=== PATIENT | male | born 1980 | race Caucasian/White ===

== ENCOUNTER 2022-01-30 03:14 | Inpatient (IN) | payer MEDICARE, OTHER ==
[~2022-01-30] VITALS: Ht 172.7 cm; Wt 56.0 kg
[2022-01-30 03:00] VITALS: BP 139/79
[2022-01-30] MEDS ORDERED: LACT1CAP19 PO (05:20)
[2022-01-30] MEDS ORDERED: TRAZ-118 PO (05:20)
[2022-01-30] MEDS ORDERED: MULT-121 PO (05:20)
[2022-01-30] MEDS ORDERED: LEVO75TA5 PO (05:20)
[2022-01-30] MEDS ORDERED: FERR325T14 PO (05:20)
[2022-01-30] MEDS ORDERED: PROC10TA57 PO (05:20)
[2022-01-30] MEDS ORDERED: SODI10PO PO (05:20)
[2022-01-30] MEDS ORDERED: INSU100V6 SQ (05:20)
[2022-01-30] MEDS ORDERED: MUPI15CR8 TP (05:20)
[2022-01-30] MEDS ORDERED: AMIN30LI2 PO (05:20)
[2022-01-30] MEDS ORDERED: GABA-585 PO (05:20)
[2022-01-30] MEDS ORDERED: NICO1PAT25 TP (05:20)
[2022-01-30] MEDS ORDERED: TAMS0.4C97 PO (05:20)
[2022-01-30] MEDS ORDERED: CHOL4POW6 PO (05:20)
[2022-01-30] MEDS ORDERED: THIA100T57 PO (05:20)
[2022-01-30] MEDS ORDERED: LOPE2CAP3 PO (05:20)
[2022-01-30] MEDS ORDERED: CALC500T31 PO (05:20)
[2022-01-30] MEDS ORDERED: ASCO500T3 PO (05:20)
--- NOTE | 2022-01-30 05:24 | NUR ---
Patient transfered here from [facility]. Patient is currently drowsy, denies having any pain at this time. Patient is not able to answer questions coherently. Home medication list captured from medical records recieved from [facility]. Doctor independent marketing consultant has been paged for admit orders.
[2022-01-30] MEDS ORDERED: PROCHLORPERAZINE 5 MG TABLET. PO PRN (06:30)
[2022-01-30] MEDS: AA 4.25 %/CALCIUM/LYTES/D5W 1,000 ML IV SCH ×2 (06:30→16:53)
[2022-01-30] MEDS: LEVOTHYROXINE 75 MCG TABLET PO SCH (06:30)
[2022-01-30] MEDS: TAMSULOSIN 0.4 MG CAP.ER.24H. PO SCH (06:43)
[2022-01-30] MEDS: SODIUM ZIRCONIUM CYCLOSILICATE 10 GM PO SCH ×2 (06:43→20:52)
[2022-01-30] MEDS: LACTOBACILLUS RHAMNOSUS GG 1 CAPSULE. PO SCH ×2 (06:43→20:44)
[2022-01-30] MEDS: FERROUS SULFATE 325 MG TABLET. PO SCH (06:43)
[2022-01-30] MEDS: ASCORBIC ACID 500 MG TABLET PO SCH (06:44)
[2022-01-30] MEDS: MULTIVITAMIN with MINERAL TABLET. PO SCH (06:44)
[2022-01-30] MEDS: GABAPENTIN 100 MG CAPSULE. PO SCH ×3 (06:44→20:44)
[2022-01-30] MEDS: THIAMINE 100 MG TABLET. PO SCH (06:44)
[2022-01-30] MEDS: CALCIUM CARBONATE 500 MG TABLET PO SCH ×2 (06:44→20:44)
[2022-01-30] MEDS: CHOLESTYRAMINE/ASPARTAME 4 GM PACKET PO SCH ×2 (06:44→20:44)
[2022-01-30] MEDS: DEXTROSE 50% 25 GM / 50ML DISP.SYRIN. IV PRN (06:56)
[2022-01-30 07:00] VITALS: BP 146/101
[2022-01-30] MEDS: INSULIN LISPRO 300 UNITS/3 ML VIAL. SQ SCH ×4 (07:09→17:27)
[2022-01-30] MEDS: MUPIROCIN 2 % OINTMENT 22GM TUBE. TP SCH (07:22)
--- NOTE | 2022-01-30 07:24 | NUR ---
Patient had low blood glucose this morning. 1/2 amp of Dextrose administered. Blood sugar rechecked and it is 124. Doctor notified via message center
[2022-01-30] MEDS: NICOTINE 14MG PATCH. TD SCH (08:44)
[2022-01-30] MEDS ORDERED: NON FORMULARY ITEM (Amino Acids/Protein Hydrolys (Pro-Stat Liquid) 30 ML) PO SCH (09:00)
[2022-01-30] MEDS ORDERED: LOPERAMIDE 2 MG CAPSULE PO PRN (09:00)
[2022-01-30 09:19] LABS: BASO # 0.1 x10^3/uL (0.0-0.2); BASO % 2 % (0-3); EOS # 0.4 x10^3/uL (0.0-0.7); EOS % 7 % (0-3); HEMATOCRIT 22.7 % (39.0-53.0); HEMOGLOBIN 7.4 g/dL (13.0-17.5); LYMPH # 1.5 x10^3/uL (1.0-4.8); LYMPH % 25 % (24-48); MEAN CORPUSCULAR HEMOGLOBIN 27 pg (25-35); MEAN CORPUSCULAR HGB CONC 33 g/dL (31-37); MEAN CORPUSCULAR VOLUME 82 fL (79-100); MONO # 0.6 x10^3/uL (0.0-1.1); MONO % 10 % (0-9); NEUT # 3.4 x10^3/uL (1.8-7.7); NEUT % 56 % (31-73); PLATELET COUNT 621 x10^3/uL (140-400); RED BLOOD COUNT 2.77 x10^6/uL (4.30-5.70); RED CELL DISTRIBUTION WIDTH 15.6 % (11.5-14.5); WHITE BLOOD COUNT 6.1 x10^3/uL (4.0-11.0)
[2022-01-30 09:30] LABS: CALCIUM 8.3 mg/dL (8.5-10.1); CREATININE 0.9 mg/dL (0.7-1.3); GFR 93.5
[2022-01-30 09:33] LABS: POTASSIUM 5.2 mmol/L (3.5-5.1)
[2022-01-30 11:00] VITALS: BP 125/77
--- NOTE | 2022-01-30 11:19 | NUR ---
Bit Grinder did not administer insulin to patient at lunch, blood sugar was 267 but patient not eating and blood sugar was critically low this morning.
--- NOTE | 2022-01-30 11:40 | NUR ---
Patients temperature this morning was low at 92.1, blankets applied and 2 heat pads, Dr. Carty and Dr. Beavers notified. After several checks temp is now 97.4 and stable.
[2022-01-30] MEDS ORDERED: ONDANSETRON PF 4 MG/2 ML VIAL. IVP PRN (11:45)
[2022-01-30] MEDS ORDERED: ELECTROLYTE (NON-ICU) PROTOCOL. MC PRN (11:45)
[2022-01-30] MEDS ORDERED: ACETAMINOPHEN 325 MG TABLET. PO PRN (11:45)
[2022-01-30] MEDS ORDERED: oxyCODONE/APAP 5/325 1 TAB TABLET PO PRN (11:45)
[2022-01-30] MEDS: SENNOSIDES/DOCUSATE 8.6/50MG TABLET. PO SCH ×2 (11:53→20:44)
[2022-01-30] MEDS: oxyCODONE/APAP 5/325 1 TAB TABLET PO PRN ×2 (11:54→16:09)
[2022-01-30] MEDS: HEPARIN for SUB-Q USE 5,000 UNIT/ML VIAL. SQ SCH ×2 (11:58→21:36)
[2022-01-30] MEDS ORDERED: INSULIN REGULAR 100 UNIT/ML 3ML VIAL. SQ SCH (12:00)
[2022-01-30] MEDS ORDERED: SODIUM POLYSTYRENE SULFON/SORB 15 GM/60 ML ORAL.SUSP. PO ONE (13:45)
--- NOTE | 2022-01-30 13:45 | PDOC1 ---
History and Physical Date of Service: DOS: DATE: 01/30/22 TIME: 13:45 Chief Complaint: Chief Complain: abd pain, hyperglycemia History of Present Illness: HPI: Patient is a 41-year-old male presenting to the emergency department for evaluation of abdominal pain and hyperglycemia. Patient says that he has a history of pancreatitis recurrently and was admitted last wek for the same. He says he has dealt with pancreatitis for the past 15 years and asked him what the etiology was if it was his gallbladder or alcohol abuse and he said neither is he has had his gallbladder taken out and he does not drink alcohol. He denies fevers chills nausea vomiting diarrhea constipation. He says that he uses injections for his diabetes and has been compliant but his blood sugars have been persistently above 600. He appears nontoxic with normal vital signs. Of note this is patient's fifth ER visit since failure the eighth and it appears the patient was admitted on his last ER visit by Dr. Rod for pancreatitis and failure to thrive. Past Medical/Surgical History: PMH/PSH: Past Medical History: Depression, Diabetes Additional Past Medical Histor: ANOXIC BRAIN DAMAGE, ENCEPHALOPATHY, Past Surgical History: Cholecystectomy Additional Past Surgical Histo: LEFT LOWER LEG AMPUTATION Alcohol Use: None Drug Use: Marijuana Allergies: Allergies: Coded Allergies: No Known Drug Allergies (Unverified , 01/30/22) Patient states that he does not have any allergies Family History: Family History: DM Current Medications: Current Medications Current Medications Amino Acids/ Electrolytes/ Dextrose 1,000 ml @ 75 mls/hr [id number] IV Last administered on 01/30/22at 06:30; Start 01/30/22 at 06:00 Ascorbic Acid (Vitamin C) 500 mg DAILY PO ; Start 01/30/22 at 09:00 Calcium Carbonate/ Glycine (Oscal) 500 mg BID PO ; Start 01/30/22 at 09:00 Ferrous Sulfate (Feosol) 325 mg DAILY PO ; Start 01/30/22 at 09:00 Gabapentin (Neurontin) 100 mg TID PO ; Start 01/30/22 at 09:00 Insulin Human Regular (HumuLIN R VIAL) 100 unit Q6HRS SQ ; Start 01/30/22 at 12 :00; Status UNV Lactobacillus Rhamnosus (Culturelle) 1 cap BID PO ; Start 01/30/22 at 09:00 Levothyroxine Sodium (Synthroid) 75 mcg DAILY06 PO ; Start 01/30/22 at 06:30 Loperamide HCl (Imodium) 2 mg PRN TID PRN PO DIARRHEA; Start 01/30/22 at 09:00 Nicotine (Nicoderm Cq 14mg) 1 patch DAILY TD ; Start 01/30/22 at 09:00 Tamsulosin HCl (Flomax) 0.4 mg DAILY PO ; Start 01/30/22 at 09:00 Trazodone HCl (Desyrel) 50 mg QHS PO ; Start 01/30/22 at 21:00 Non-Formulary Medication (Amino Acids/ Protein Hydrolys (Pro-Stat Liquid)) 30 ml BID PO ; Start 01/30/22 at 09:00; Status UNV Cholestyramine Resin (Questran Light) 4 gm BID PO ; Start 01/30/22 at 09:00 Multivitamins (Thera M Plus) 1 tab DAILY PO ; Start 01/30/22 at 09:00 Mupirocin (Bactroban) 1 jay DAILY TP ; Start 01/30/22 at 09:00 Prochlorperazine Maleate (Compazine) 10 mg PRN Q12HRS PRN PO NAUSEA/VOMITING; Start 01/30/22 at 06:30 Non-Formulary Medication (Sodium Zirconium Cyclosilicate (Lokelma)) 10 gm BID PO ; Start 01/30/22 at 09:00; Status UNV Thiamine Mononitrate (Vitamin B-1) 100 mg DAILY PO ; Start 01/30/22 at 09:00 Dextrose (Dextrose 50%-Water Syringe) 12.5 gm PRN Q15MIN PRN IV SEE COMMENTS Last administered on 01/30/22at 06:56; Start 01/30/22 at 06:45 Insulin Human Lispro (HumaLOG) 0-5 UNITS TIDWMEALS SQ Last administered on 01/30/22at 12:54; Start 01/30/22 at 08:00 Ondansetron HCl (Zofran) 4 mg PRN Q6HRS PRN IVP NAUSEA/VOMITING; Start 01/30/22 at 11:45 Calcium Carbonate/ Glycine (Tums) 500 mg PRN Q3HRS PRN PO UPSET STOMACH; Start 01/30/22 at 11:45 Info (Non-Icu Electrolyte Protocol) 1 ea PRN DAILY PRN MC SEE COMMENTS; Start 01/30/22 at 11:45 Oxycodone/ Acetaminophen (Percocet 5/325) 1 tab PRN Q4HRS PRN PO MILD PAIN, 1ST CHOICE; Start 01/30/22 at 11:45 Oxycodone/ Acetaminophen (Percocet 5/325) 2 tab PRN Q4HRS PRN PO MODERATE PAIN, SEVERE PAIN Last administered on 01/30/22at 11:54; Start 01/30/22 at 11:45 Acetaminophen (Tylenol) 650 mg PRN Q6HRS PRN PO Headaches, Temp > 101.5F; Start 01/30/22 at 11:45 Senna/Docusate Sodium (Senna Plus) 1 tab BID PO Last administered on 01/30/22at 11:53; Start 01/30/22 at 12:00 Heparin Sodium (Porcine) (Heparin Sodium) 5,000 unit Q8HRS SQ Last administered on 01/30/22at 11:58; Start 01/30/22 at 12:00 Active Scripts Active Reported Ascorbic Acid 500 Mg Tablet 500 Mg PO DAILY Vitamin B-1 (Thiamine Hcl) 100 Mg Tablet 100 Mg PO DAILY Flomax (Tamsulosin Hcl) 0.4 Mg Cap.er.24h 0.4 Mg PO DAILY Lokelma (Sodium Zirconium Cyclosilicate) 10 Gm Powd.pack 10 Gm PO BID Pro-Stat Liquid (Amino Acids/Protein Hydrolys) 30 Ml Liquid.pkt 30 Ml PO BID NICODERM CQ 14mg (Nicotine) 1 Each Patch.td24 1 Patch TP DAILY Mupirocin Cream (Mupirocin) 15 Gm Cream..g. 1 Jay TP DAILY 7 Days Multiple Vitamins (Multivitamin) 1 Each Tablet 1 Tab PO DAILY 30 Days Anti-Diarrheal (Loperamide Hcl) 2 Mg Capsule 2 Mg PO TID Levothyroxine Sodium 75 Mcg Tablet 1 Tab PO DAILY Ferrous Sulfate 325 Mg Tablet 325 Mg PO DAILY Cholestyramine Packet (Cholestyramine (With Sugar)) 4 Gm Powd.pack 4 Gm PO BID Trazodone Hcl 50 Mg Tablet 1 Tab PO QHS Compazine (Prochlorperazine Maleate) 10 Mg Tablet 1 Tab PO Q12HR 30 Days Culturelle (Lactobacillus Rhamnosus Gg) 1 Each Cap.sprink 1 Each PO BID Humalog (Insulin Lispro) 100 Unit/1 Ml Vial 100 Unit SQ Q6HRS Gabapentin (Gabapentin) 100 Mg Capsule 100 Mg PO TID Calcium Carbonate 500 Mg Tablet 500 Mg PO BID ROS: Review of Systems Review of System Unless noted in HPI 14 point review of systems was negative Physical Exam: Vital Signs: Vital Signs Date Time Temp Pulse Resp B/P (MAP) Pulse Ox O2 Delivery O2 Flow Rate FiO2 01/30/22 11:00 97.3 68 18 125/77 (93) Room Air 97.3 01/30/22 07:00 100 Physcial Exam: GEN: No apparent distress. Alert and oriented HEENT: Normal cephalic, atraumatic, external auditory canals are patent EYES: Extraocular muscles are intact, pupil are equally round and reactive to light and accommodation MUSCULOSKELETAL: Well developed , well nourished, good range of motion ENDOCRINE: No thyromegaly was palpated LYMPHATICS: No cervical chain or axillary nodes were noted HEMATOPOIETIC: No bruising NECK: Supple, no JVD, no thyromegaly was noted LUNGS: Clear to auscultation in all lung wallace without rhonchi or wheezing HEART: RRR, S!, S2 present. Peripheral pulses intact, no obvious murmurs noted ABDOMEN: Soft, nontender. Positive bowel sounds, no organomegaly, normal bowel sounds EXTREMITIES: Without clubbing, cyanosis, or edema. Pedal pulses intact. Nega tive Homans sign NEUROLOGIC: Normal speech and tone. A&O x 3, moves all extremities, no obvious focal deficits PSYCHIATRIC: Normal affect, normal mood. Stable SKIN: No ulcerations or rashes, good skin turgor, no jaundice VASCULAR: Good capillary refill, neurovascular bundle appears to be intact Labs: Labs: Laboratory Tests Test 01/30/22 06:26 01/30/22 06:28 01/30/22 07:08 01/30/22 07:57 Glucose (Fingerstick) 43 mg/dL (70-99) 51 mg/dL (70-99) 124 mg/dL (70-99) 112 mg/dL (70-99) Test 01/30/22 08:42 01/30/22 08:59 01/30/22 11:17 Glucose (Fingerstick) 182 mg/dL (70-99) 267 mg/dL (70-99) White Blood Count 6.1 x10^3/uL (4.0-11.0) Red Blood Count 2.77 x10^6/uL (4.30-5.70) Hemoglobin 7.4 g/dL (13.0-17.5) Hematocrit 22.7 % (39.0-53.0) Mean Corpuscular Volume 82 fL (79-100) Mean Corpuscular Hemoglobin 27 pg (25-35) Mean Corpuscular Hemoglobin Concent 33 g/dL (31-37) Red Cell Distribution Width 15.6 % (11.5-14.5) Platelet Count 621 x10^3/uL (140-400) Neutrophils (%) (Auto) 56 % (31-73) Lymphocytes (%) (Auto) 25 % (24-48) Monocytes (%) (Auto) 10 % (0-9) Eosinophils (%) (Auto) 7 % (0-3) Basophils (%) (Auto) 2 % (0-3) Neutrophils # (Auto) 3.4 x10^3/uL (1.8-7.7) Lymphocytes # (Auto) 1.5 x10^3/uL (1.0-4.8) Monocytes # (Auto) 0.6 x10^3/uL (0.0-1.1) Eosinophils # (Auto) 0.4 x10^3/uL (0.0-0.7) Basophils # (Auto) 0.1 x10^3/uL (0.0-0.2) Sodium Level 135 mmol/L (136-145) Potassium Level 5.2 mmol/L (3.5-5.1) Chloride Level 106 mmol/L (98-107) Carbon Dioxide Level 22 mmol/L (21-32) Anion Gap 7 (6-14) Blood Urea Nitrogen 24 mg/dL (8-26) Creatinine 0.9 mg/dL (0.7-1.3) Estimated GFR (Cockcroft-Gault) 93.5 Glucose Level 165 mg/dL (70-99) Calcium Level 8.3 mg/dL (8.5-10.1) Laboratory Tests Test 01/30/22 06:26 01/30/22 06:28 01/30/22 07:08 01/30/22 07:57 Glucose (Fingerstick) 43 mg/dL (70-99) 51 mg/dL (70-99) 124 mg/dL (70-99) 112 mg/dL (70-99) Test 01/30/22 08:42 01/30/22 08:59 01/30/22 11:17 Glucose (Fingerstick) 182 mg/dL (70-99) 267 mg/dL (70-99) White Blood Count 6.1 x10^3/uL (4.0-11.0) Red Blood Count 2.77 x10^6/uL (4.30-5.70) Hemoglobin 7.4 g/dL (13.0-17.5) Hematocrit 22.7 % (39.0-53.0) Mean Corpuscular Volume 82 fL (79-100) Mean Corpuscular Hemoglobin 27 pg (25-35) Mean Corpuscular Hemoglobin Concent 33 g/dL (31-37) Red Cell Distribution Width 15.6 % (11.5-14.5) Platelet Count 621 x10^3/uL (140-400) Neutrophils (%) (Auto) 56 % (31-73) Lymphocytes (%) (Auto) 25 % (24-48) Monocytes (%) (Auto) 10 % (0-9) Eosinophils (%) (Auto) 7 % (0-3) Basophils (%) (Auto) 2 % (0-3) Neutrophils # (Auto) 3.4 x10^3/uL (1.8-7.7) Lymphocytes # (Auto) 1.5 x10^3/uL (1.0-4.8) Monocytes # (Auto) 0.6 x10^3/uL (0.0-1.1) Eosinophils # (Auto) 0.4 x10^3/uL (0.0-0.7) Basophils # (Auto) 0.1 x10^3/uL (0.0-0.2) Sodium Level 135 mmol/L (136-145) Potassium Level 5.2 mmol/L (3.5-5.1) Chloride Level 106 mmol/L (98-107) Carbon Dioxide Level 22 mmol/L (21-32) Anion Gap 7 (6-14) Blood Urea Nitrogen 24 mg/dL (8-26) Creatinine 0.9 mg/dL (0.7-1.3) Estimated GFR (Cockcroft-Gault) 93.5 Glucose Level 165 mg/dL (70-99) Calcium Level 8.3 mg/dL (8.5-10.1) Assessment/Plan Assessment/Plan Pancreatitis secondary to diabetes. Severe malnourishment. -Admit to hospitalist -We will start insulin. Patient diabetes very brittle thus frequent sugar checks -home insulin regimen ordered; add sliding scale asneeded -DVT ppx -home meds as indicated otherwise -pain control -no need for antimicrobials at this point -clear liquid diet as patient asking for diet, suspect pancreatitis resolving -recommended he establish with an supervisor graphite moving forward 22 min acp Justifications for Admission Other Justification VIC NEWMAN MD January 30, 2022 13:45
[2022-01-30 15:00] VITALS: BP 117/74
--- NOTE | 2022-01-30 17:08 | NUR ---
Patients blood sugar is 398, educated patient about overeating and eating the wrong foods, notified Dr. Beavers, new order for sliding scale plus 5 units of humalog.
[2022-01-30] MEDS ORDERED: INSULIN LISPRO 300 UNITS/3 ML VIAL. SQ SCH (17:15)
[2022-01-30] MEDS ORDERED: INSULIN LISPRO 300 UNITS/3 ML VIAL. SQ ONE (17:30)
[2022-01-30 19:00] VITALS: BP 126/61
[2022-01-30] MEDS: traZODone 50 MG TABLET. PO SCH (20:44)
[2022-01-30] MEDS ORDERED: INSULIN GLARGINE SYRINGE. SQ SCH (21:00)
[2022-01-30 23:00] VITALS: BP 105/62
[2022-01-31 03:00] VITALS: BP 105/60
[2022-01-31] MEDS: oxyCODONE/APAP 5/325 1 TAB TABLET PO PRN ×4 (03:28→20:45)
[2022-01-31] MEDS: DEXTROSE 50% 25 GM / 50ML DISP.SYRIN. IV PRN ×2 (06:01→14:35)
[2022-01-31] MEDS: LEVOTHYROXINE 75 MCG TABLET PO SCH (06:02)
[2022-01-31] MEDS: HEPARIN for SUB-Q USE 5,000 UNIT/ML VIAL. SQ SCH ×3 (06:10→22:39)
--- NOTE | 2022-01-31 06:20 | NUR ---
Patient was found diaphoretic, sluggishly responding to name. Blood glucose checked and was found to be 21. Half an amp of dextrose IV administered. Blood glucose rechecked 15 minutes later and it was 101. Patient is now Alert, oriented x4. transportation maintenance supervisor paged. Message left with answering service
[2022-01-31] MEDS: INSULIN LISPRO 300 UNITS/3 ML VIAL. SQ SCH ×6 (07:30→17:00)
[2022-01-31] MEDS: CALCIUM CARBONATE 500 MG TABLET PO SCH ×2 (08:11→20:44)
[2022-01-31] MEDS: SENNOSIDES/DOCUSATE 8.6/50MG TABLET. PO SCH ×2 (08:11→20:45)
[2022-01-31] MEDS: THIAMINE 100 MG TABLET. PO SCH (08:11)
[2022-01-31] MEDS: LACTOBACILLUS RHAMNOSUS GG 1 CAPSULE. PO SCH ×2 (08:11→20:44)
[2022-01-31] MEDS: FERROUS SULFATE 325 MG TABLET. PO SCH (08:11)
[2022-01-31] MEDS: GABAPENTIN 100 MG CAPSULE. PO SCH ×3 (08:11→20:44)
[2022-01-31] MEDS: MULTIVITAMIN with MINERAL TABLET. PO SCH (08:11)
[2022-01-31] MEDS: ASCORBIC ACID 500 MG TABLET PO SCH (08:11)
[2022-01-31] MEDS: TAMSULOSIN 0.4 MG CAP.ER.24H. PO SCH (08:12)
[2022-01-31] MEDS: NICOTINE 14MG PATCH. TD SCH (08:13)
[2022-01-31] MEDS: CHOLESTYRAMINE/ASPARTAME 4 GM PACKET PO SCH ×2 (08:14→20:44)
[2022-01-31] MEDS: MUPIROCIN 2 % OINTMENT 22GM TUBE. TP SCH (08:22)
[2022-01-31] MEDS: SODIUM ZIRCONIUM CYCLOSILICATE 10 GM PO SCH ×2 (09:00→21:00)
--- NOTE | 2022-01-31 09:59 | PDOC ---
[employer] PROGRESS NOTE Date of Service DOS: DATE: 01/31/22 TIME: 09:46 Chief Complaint Chief Complaint Pancreatitis secondary to diabetes DM1 Multiple superficial wounds to bilateral lower extremities s/p left BKA Severe malnourishment History of Present Illness History of Present Illness 01/31: Patient seen and evaluated bedside. Blood sugar was as low as 12 this morning. 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 We will decrease to 10 units at night. He has no abdominal pain today. Will advance diet as tolerated. Vitals/I&O Vitals/I&O: Vital Signs Date Time Temp Pulse Resp B/P (MAP) Pulse Ox O2 Delivery O2 Flow Rate FiO2 01/31/22 08:42 Room Air 01/31/22 04:17 16 01/31/22 03:00 98.0 73 105/60 (75) 99 98.0 I & O 01/30/22 01/30/22 01/31/22 15:00 23:00 07:00 Intake Total 250 ml 2374 ml Output Total 1200 ml Balance -950 ml 2374 ml Physical Exam General: Alert, Oriented X3, Cooperative Heart: Regular rate Lungs: Clear Abdomen: No tenderness Extremities: Other (Left BKA) Skin: Other (Superficial abrasions and ulcerations to bilateral lower extremities) Labs Labs: Laboratory Tests Test 01/30/22 11:17 01/30/22 16:57 01/30/22 20:24 01/31/22 05:49 Glucose (Fingerstick) 267 mg/dL (70-99) 398 mg/dL (70-99) 206 mg/dL (70-99) 12 mg/dL (70-99) Test 01/31/22 05:54 01/31/22 06:08 01/31/22 06:30 01/31/22 07:37 Glucose (Fingerstick) 21 mg/dL (70-99) 101 mg/dL (70-99) 85 mg/dL (70-99) 90 mg/dL (70-99) Comment Review of Relevant I have reviewed the following items myron (where applicable) has been applied. Medications: Current Medications Medications (Trade) Dose Ordered Sig/Zenon Route PRN Reason Start Time Stop Time Status Last Admin Dose Admin Trazodone HCl (Desyrel) 50 mg QHS PO 01/30/22 21:00 01/30/22 20:44 Oxycodone/ Acetaminophen (Percocet 5/325) 2 tab PRN Q4HRS PRN PO MODERATE PAIN, SEVERE PAIN 01/30/22 11:45 01/31/22 08:12 Senna/Docusate Sodium (Senna Plus) 1 tab BID PO 01/30/22 12:00 01/31/22 08:11 Heparin Sodium (Porcine) (Heparin Sodium) 5,000 unit Q8HRS SQ 01/30/22 12:00 01/31/22 06:10 Insulin Glargine (Lantus Syringe) 14 unit QHS SQ 01/30/22 21:00 01/30/22 20:52 Sodium Polystyrene Sulfonate (Kayexalate) 15 gm 1X ONCE PO 01/30/22 13:45 01/30/22 13:51 DC 01/30/22 13:56 Insulin Human Lispro (HumaLOG) 5 units 1X ONCE SQ 01/30/22 17:30 01/30/22 17:31 DC 01/30/22 17:30 Justifications for Admission Other Justification AVA CLOON MD January 31, 2022 09:59
[2022-01-31 11:12] VITALS: BP 118/72
[2022-01-31 15:00] VITALS: BP 116/72
--- NOTE | 2022-01-31 17:10 | NUR ---
Wound Care Wound Type/Assessment: Consult to eval and treat multiple wounds present on admission. Pt has been treated for the same wounds multiple times when at [facility]. Wounds cleansed and measured (pictures present on chart). L knee wound is hypergranulated with a small tunnel in the center with 0.8cm depth and UM 12-12 of 1.8cm. L carpenter, R knee, R carpenter wounds are dry and slough covered with pink margins. Multiple areas of scar tissue to R foot. L dorsal 3rd and 5th knuckles have intact, fluctuant, clear fluid filled blisters. L stump is pink, moist, granulated without exposed structures or significant depth. No other wounds noted on head to toe assessment. Treatment Recommendations/Plan: Bilat. shins, R knee, L BKA stump: Cleanse and dry. Apply medihoney gel, xeroform gauze, ABD, kerlix. Change every other day. L knee: Pack central depth/undermining with 1/4" iodoform gauze, cover with xeroform, ABD, kerlix. Change every other day. R toes/L hand blisters: [place] blisters/scabs with skin prep daily. Leave CANTEEN ATTENDANT Education provided: Pt educated r/t treatment plan. diabetic wound healing, turning to prevent skin breakdown. Offloading surface/device: Pt is able to turn independently. Recommended Referrals/Tests: NA Discharge Recommendations for dressings: As above pending changes to treatment plan
[2022-01-31 19:00] VITALS: BP 135/77
--- NOTE | 2022-01-31 19:16 | NUR ---
blood sugar at lunch was 14. 50ml of dextrose was given. At 1455 blood sugar was 81 and pt was just starting to eat lunch. At 1500 blood sugar was 140. Patient did not want to take his scheduled 10units of Humalog at this time
[2022-01-31] MEDS: traZODone 50 MG TABLET. PO SCH (20:44)
[2022-01-31] MEDS: INSULIN GLARGINE SYRINGE. SQ SCH (20:54)
[2022-01-31 23:00] VITALS: BP 132/72
[2022-02-01] VITALS (11 sets, daily range): BP systolic 98–132; BP diastolic 54–82
[2022-02-01 01:08] LABS: HEMOGLOBIN A1C 13.7 % (4.8-5.6)
[2022-02-01] MEDS: oxyCODONE/APAP 5/325 1 TAB TABLET PO PRN ×4 (03:26→16:13)
--- NOTE | 2022-02-01 04:01 | NUR ---
Patient has been incontinent of 3 large stools that are soft and greyish colored w/ undigested food particles present. States he's been incontinent of stool for 2 years. Requests nursing staff to clean and change his diaper, while he looks on. States his father is his caregiver for him and his mother. Father recently diagnosed w/ cancer. Requests Percocet for his "leg pain" then states they make him nauseous. Requesting turkey sandwich and ice cream. Sugar free pudding and shaun crackers given.
[2022-02-01] MEDS: LEVOTHYROXINE 75 MCG TABLET PO SCH (06:24)
[2022-02-01] MEDS: HEPARIN for SUB-Q USE 5,000 UNIT/ML VIAL. SQ SCH ×3 (06:28→22:00)
[2022-02-01] MEDS: INSULIN LISPRO 300 UNITS/3 ML VIAL. SQ SCH ×6 (07:30→17:49)
[2022-02-01 08:02] LABS: BASO # 0.1 x10^3/uL (0.0-0.2); BASO % 1 % (0-3); EOS # 0.5 x10^3/uL (0.0-0.7); EOS % 7 % (0-3); HEMATOCRIT 20.2 % (39.0-53.0); LYMPH # 2.3 x10^3/uL (1.0-4.8); LYMPH % 29 % (24-48); MEAN CORPUSCULAR HEMOGLOBIN 27 pg (25-35); MEAN CORPUSCULAR HGB CONC 32 g/dL (31-37); MEAN CORPUSCULAR VOLUME 84 fL (79-100); MONO # 0.6 x10^3/uL (0.0-1.1); MONO % 7 % (0-9); NEUT # 4.4 x10^3/uL (1.8-7.7); NEUT % 56 % (31-73); PLATELET COUNT 559 x10^3/uL (140-400); WHITE BLOOD COUNT 7.9 x10^3/uL (4.0-11.0)
[2022-02-01 08:14] LABS: HEMOGLOBIN 6.5 g/dL (13.0-17.5)
[2022-02-01 08:22] LABS: ALBUMIN 1.9 g/dL (3.4-5.0); ALBUMIN/GLOBULIN RATIO 0.5 (1.0-1.7); CALCIUM 7.9 mg/dL (8.5-10.1); CREATININE 0.9 mg/dL (0.7-1.3); GFR 93.5; POTASSIUM 5.4 mmol/L (3.5-5.1); TOTAL BILIRUBIN 0.2 mg/dL (0.2-1.0); TOTAL PROTEIN 5.6 g/dL (6.4-8.2)
--- NOTE | 2022-02-01 08:32 | PDOC ---
[employer] PROGRESS NOTE Date of Service DOS: DATE: 02/01/22 TIME: 08:28 Chief Complaint Chief Complaint Pancreatitis secondary to diabetes DM1 Multiple superficial wounds to bilateral lower extremities s/p left BKA Severe malnourishment History of Present Illness History of Present Illness 02/01: Patient seen and evaluated. Hemoglobin is 6.5 today. Provide [address] consultation to GI. He denies abdominal pain. Reports history of chronic diarrhea over the past 2 years, uncertain if this overtly red or black. 01/31: Patient seen and evaluated bedside. Blood sugar was as low as 12 this morning. 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 We will decrease to 10 units at night. He has no abdominal pain today. Will advance diet as tolerated. Vitals/I&O Vitals/I&O: Vital Signs Date Time Temp Pulse Resp B/P (MAP) Pulse Ox O2 Delivery O2 Flow Rate FiO2 02/01/22 07:35 16 100 Room Air 02/01/22 03:00 84 119/67 (84) 01/31/22 23:00 98.9 98.9 I & O 01/31/22 01/31/22 02/01/22 15:00 23:00 07:00 Intake Total 750 ml 1500 ml 620 ml Output Total 1275 ml Balance 750 ml 225 ml 620 ml Physical Exam General: Alert, Oriented X3, Cooperative Heart: Regular rate Lungs: Clear Abdomen: No tenderness Extremities: Other (Left BKA) Skin: Other (Superficial abrasions and ulcerations to bilateral lower extremities) Labs Labs: Laboratory Tests Test 01/31/22 11:19 01/31/22 11:36 01/31/22 14:29 01/31/22 14:54 Glucose (Fingerstick) 285 mg/dL (70-99) 255 mg/dL (70-99) 14 mg/dL (70-99) 81 mg/dL (70-99) Test 01/31/22 17:07 01/31/22 20:13 02/01/22 01:59 02/01/22 07:05 Glucose (Fingerstick) 140 mg/dL (70-99) 330 mg/dL (70-99) 270 mg/dL (70-99) White Blood Count 7.9 x10^3/uL (4.0-11.0) Red Blood Count 2.40 x10^6/uL (4.30-5.70) Hemoglobin 6.5 g/dL (13.0-17.5) Hematocrit 20.2 % (39.0-53.0) Mean Corpuscular Volume 84 fL (79-100) Mean Corpuscular Hemoglobin 27 pg (25-35) Mean Corpuscular Hemoglobin Concent 32 g/dL (31-37) Red Cell Distribution Width 16.0 % (11.5-14.5) Platelet Count 559 x10^3/uL (140-400) Neutrophils (%) (Auto) 56 % (31-73) Lymphocytes (%) (Auto) 29 % (24-48) Monocytes (%) (Auto) 7 % (0-9) Eosinophils (%) (Auto) 7 % (0-3) Basophils (%) (Auto) 1 % (0-3) Neutrophils # (Auto) 4.4 x10^3/uL (1.8-7.7) Lymphocytes # (Auto) 2.3 x10^3/uL (1.0-4.8) Monocytes # (Auto) 0.6 x10^3/uL (0.0-1.1) Eosinophils # (Auto) 0.5 x10^3/uL (0.0-0.7) Basophils # (Auto) 0.1 x10^3/uL (0.0-0.2) Sodium Level 133 mmol/L (136-145) Potassium Level 5.4 mmol/L (3.5-5.1) Chloride Level 105 mmol/L (98-107) Carbon Dioxide Level 21 mmol/L (21-32) Anion Gap 7 (6-14) Blood Urea Nitrogen 17 mg/dL (8-26) Creatinine 0.9 mg/dL (0.7-1.3) Estimated GFR (Cockcroft-Gault) 93.5 BUN/Creatinine Ratio 19 (6-20) Glucose Level 94 mg/dL (70-99) Calcium Level 7.9 mg/dL (8.5-10.1) Total Bilirubin 0.2 mg/dL (0.2-1.0) Aspartate Amino Transf (AST/SGOT) 37 U/L (15-37) Alanine Aminotransferase (ALT/SGPT) 111 U/L (16-63) Alkaline Phosphatase 237 U/L (46-116) Total Protein 5.6 g/dL (6.4-8.2) Albumin 1.9 g/dL (3.4-5.0) Albumin/Globulin Ratio 0.5 (1.0-1.7) Comment Review of Relevant I have reviewed the following items myron (where applicable) has been applied. Medications: Current Medications Medications (Trade) Dose Ordered Sig/Zenon Route PRN Reason Start Time Stop Time Status Last Admin Dose Admin Insulin Glargine (Lantus Syringe) 10 unit QHS SQ 01/31/22 21:00 01/31/22 20:54 Justifications for Admission Other Justification AVA COLON MD February 01, 2022 08:32
[2022-02-01] MEDS: MUPIROCIN 2 % OINTMENT 22GM TUBE. TP SCH ×2 (09:00→21:16)
[2022-02-01] MEDS: SODIUM ZIRCONIUM CYCLOSILICATE 10 GM PO SCH (09:00)
[2022-02-01] MEDS: THIAMINE 100 MG TABLET. PO SCH (09:19)
[2022-02-01] MEDS: SENNOSIDES/DOCUSATE 8.6/50MG TABLET. PO SCH (09:19)
[2022-02-01] MEDS: MULTIVITAMIN with MINERAL TABLET. PO SCH (09:19)
[2022-02-01] MEDS: GABAPENTIN 100 MG CAPSULE. PO SCH ×3 (09:19→21:13)
[2022-02-01] MEDS: TAMSULOSIN 0.4 MG CAP.ER.24H. PO SCH (09:19)
[2022-02-01] MEDS: CALCIUM CARBONATE 500 MG TABLET PO SCH ×2 (09:19→21:13)
[2022-02-01] MEDS: FERROUS SULFATE 325 MG TABLET. PO SCH (09:19)
[2022-02-01] MEDS: ASCORBIC ACID 500 MG TABLET PO SCH (09:19)
[2022-02-01] MEDS: LACTOBACILLUS RHAMNOSUS GG 1 CAPSULE. PO SCH ×2 (09:19→21:12)
[2022-02-01] MEDS: NICOTINE 14MG PATCH. TD SCH (09:23)
[2022-02-01] MEDS: CHOLESTYRAMINE/ASPARTAME 4 GM PACKET PO SCH ×2 (09:23→21:15)
--- NOTE | 2022-02-01 10:03 | PDOC2 ---
GI CONSULT Date of Service: DATE: 02/01/22 TIME: 10:03 Reason For Consult: low Hgb unknown cause HPI: HPI: 41 y/o male who says he went to [facility] for high blood sugar. H/o uncontrolled DM (A1c 13.7) and left BKA w/ BLE wounds because he crawls around on floor at home. We're asked to see for anemia. No obvious bleeding per staff. He "eats a lot." At [facility]: HGb 7, MCV 84, RDW 15.2, BUN 31, Cr 1.2, bili 0.2, AST 51, ALT 206, Alk Phos 308, BNP 3869, lipase 829. CT: moderate stool in colon, mild diffuse soft tissue anasarca/volume overload, nonspecific decreased attenuation of the blood pool, tree-in-bud nodularity at LLL. (Liver and pancreas unremarkable.) He denies reflux/heartburn, n/v, abd pain, constipation, hematochezia, melena, change in appetite, or weight loss. "Diarrhea" (3-4 mushy stools daily) x 2 years. Thinks he's been anemic for a month or two. Reports EGD and colonoscopy 5-6 years ago @ [facility] w/ colon polyps. Says h/o abnormal swallowing improved w/ speech therapy @ [facility]. S/p cholecystectomy @ [facility] ~3 years ago - denies h/o gallstones, says performed for recurrent pancreatitis. Says he's had pancreas problems for many years - unknown cause though repeats "I'm not a drinker" - unclear what workup done in past. He thinks cholecystectomy helped this issue - denies pancreatitis "flare" for awhile. Denies liver and PUD history. Takes morphine at home for leg pain. Other notes suggest recent abdominal pain and h/o anoxic brain injury. On Questran, Imodium, Senna, and Zofran here. PMH: PMH: DM, depression, anoxic brain injury, hypothyroidism left BKA, cholecystectomy FH: Family History: No pertinent hx (denies GI cancers) Social History: Smoke: 1 pack per day ALCOHOL: occassional Drugs: Marijuana ROS: GEN: Denies fevers, chills, sweats HEENT: Denies blurred vision, sore throat CV: Denies chest pain RESP: Denies shortness of air, cough GI: Per HPI : Denies hematuria, dysuria ENDO: Denies weight changes NEURO: Denies confusion, dizziness MSK: Denies weakness, joint pain/swelling SKIN: Denies jaundice, pruritus Vitals: Vitals: Vital Signs Date Time Temp Pulse Resp B/P (MAP) Pulse Ox O2 Delivery O2 Flow Rate FiO2 02/01/22 09:17 16 100 Room Air 02/01/22 07:00 97.9 76 132/79 (96) 97.9 Labs: Labs: Laboratory Tests Test 01/31/22 11:19 01/31/22 11:36 01/31/22 14:29 01/31/22 14:54 Glucose (Fingerstick) 285 mg/dL (70-99) 255 mg/dL (70-99) 14 mg/dL (70-99) 81 mg/dL (70-99) Test 01/31/22 17:07 01/31/22 20:13 02/01/22 01:59 02/01/22 07:05 Glucose (Fingerstick) 140 mg/dL (70-99) 330 mg/dL (70-99) 270 mg/dL (70-99) White Blood Count 7.9 x10^3/uL (4.0-11.0) Red Blood Count 2.40 x10^6/uL (4.30-5.70) Hemoglobin 6.5 g/dL (13.0-17.5) Hematocrit 20.2 % (39.0-53.0) Mean Corpuscular Volume 84 fL (79-100) Mean Corpuscular Hemoglobin 27 pg (25-35) Mean Corpuscular Hemoglobin Concent 32 g/dL (31-37) Red Cell Distribution Width 16.0 % (11.5-14.5) Platelet Count 559 x10^3/uL (140-400) Neutrophils (%) (Auto) 56 % (31-73) Lymphocytes (%) (Auto) 29 % (24-48) Monocytes (%) (Auto) 7 % (0-9) Eosinophils (%) (Auto) 7 % (0-3) Basophils (%) (Auto) 1 % (0-3) Neutrophils # (Auto) 4.4 x10^3/uL (1.8-7.7) Lymphocytes # (Auto) 2.3 x10^3/uL (1.0-4.8) Monocytes # (Auto) 0.6 x10^3/uL (0.0-1.1) Eosinophils # (Auto) 0.5 x10^3/uL (0.0-0.7) Basophils # (Auto) 0.1 x10^3/uL (0.0-0.2) Sodium Level 133 mmol/L (136-145) Potassium Level 5.4 mmol/L (3.5-5.1) Chloride Level 105 mmol/L (98-107) Carbon Dioxide Level 21 mmol/L (21-32) Anion Gap 7 (6-14) Blood Urea Nitrogen 17 mg/dL (8-26) Creatinine 0.9 mg/dL (0.7-1.3) Estimated GFR (Cockcroft-Gault) 93.5 BUN/Creatinine Ratio 19 (6-20) Glucose Level 94 mg/dL (70-99) Calcium Level 7.9 mg/dL (8.5-10.1) Total Bilirubin 0.2 mg/dL (0.2-1.0) Aspartate Amino Transf (AST/SGOT) 37 U/L (15-37) Alanine Aminotransferase (ALT/SGPT) 111 U/L (16-63) Alkaline Phosphatase 237 U/L (46-116) Total Protein 5.6 g/dL (6.4-8.2) Albumin 1.9 g/dL (3.4-5.0) Albumin/Globulin Ratio 0.5 (1.0-1.7) Allergies: Coded Allergies: No Known Drug Allergies (Unverified , 01/30/22) Patient states that he does not have any allergies Medications: Current Medications Medications (Trade) Dose Ordered Sig/Zenon Route PRN Reason Start Time Stop Time Status Last Admin Dose Admin Insulin Glargine (Lantus Syringe) 10 unit QHS SQ 01/31/22 21:00 01/31/22 20:54 Imaging: Imaging: see HPI PE: GEN: NAD, thin HEENT: Atraumatic, PERRL LUNGS: CTAB HEART: RRR ABD: NABS, S/ND/NT EXTREMITY: No edema SKIN: tattoos NEURO/PSYCH: A & O 3, forgetful? A/P: A/P: Uncontrolled DM, BLE wounds Anemia, abnormal LFTs, elevated BNP, hypoalbuminemia CRC screen - reports colonoscopy 5-6 years ago w/ polyps @ [facility] H/o diarrhea H/o pancreatitis - details unclear, currently denies abd pain and n/v S/p cholecystectomy -- Not sure he's the best historian. Agree w/ transfusion. Check anemia parameters, Hepatitis panel, and stool studies for completeness. Will ask for records from [facility]. Consider additional liver imaging. Other per Dr. Cook. JOSE HOGAN February 01, 2022 10:03
--- NOTE | 2022-02-01 17:46 | NUR ---
Patient's FSBS 335--patient refusing sliding scale Humalog Insulin 5UNITS; patient did agree to take 1630 dose of scheduled Humalog Insulin 10UNITS.
--- NOTE | 2022-02-01 20:20 | NUR ---
Critical result + CDiff called to Dr. Fagan. Orders rec'd.
[2022-02-01] MEDS: INSULIN GLARGINE SYRINGE. SQ SCH (21:00)
[2022-02-01] MEDS: traZODone 50 MG TABLET. PO SCH (21:13)
[2022-02-01] MEDS: VANCOMYCIN 125 MG/2.5 ML ORAL SOLUTION. PO SCH (21:14)
[2022-02-02 03:37] VITALS: BP 116/65
[2022-02-02] MEDS: LEVOTHYROXINE 75 MCG TABLET PO SCH (05:40)
[2022-02-02] MEDS: DEXTROSE 50% 25 GM / 50ML DISP.SYRIN. IV PRN (05:47)
[2022-02-02] MEDS: HEPARIN for SUB-Q USE 5,000 UNIT/ML VIAL. SQ SCH ×3 (05:48→22:31)
--- NOTE | 2022-02-02 05:57 | NUR ---
FSBS 16. 1 amp D50 given IVP. Patient with eyes closed, no verbal response, sternal rub given, patient moving in bed. Diaphoretic. FSBS 130. Now awake. Rapid response called at the request of MARCK Loredo. No further interventions needed. Patient given sandwich tray and apple juice. Dressing to left stump found in bed. Linens changed.
[2022-02-02] MEDS: oxyCODONE/APAP 5/325 1 TAB TABLET PO PRN ×5 (06:14→21:42)
[2022-02-02 06:41] LABS: HEMATOCRIT 26.3 % (39.0-53.0); HEMOGLOBIN 8.5 g/dL (13.0-17.5); RED BLOOD COUNT 3.16 x10^6/uL (4.30-5.70); RED CELL DISTRIBUTION WIDTH 15.7 % (11.5-14.5); WHITE BLOOD COUNT 5.3 x10^3/uL (4.0-11.0)
[2022-02-02] MEDS: INSULIN LISPRO 300 UNITS/3 ML VIAL. SQ SCH ×6 (07:30→17:00)
[2022-02-02 07:35] VITALS: BP 121/78
--- NOTE | 2022-02-02 08:14 | NUR ---
Patient calling staff "Morons" redirected to avoid name calling and inappropriate comments.
--- NOTE | 2022-02-02 08:49 | PDOC ---
[employer] PROGRESS NOTE Date of Service DOS: DATE: 02/02/22 TIME: 08:43 Chief Complaint Chief Complaint Pancreatitis secondary to diabetes DM1 Multiple superficial wounds to bilateral lower extremities s/p left BKA Severe malnourishment History of Present Illness History of Present Illness 02/02: Afebrile. Significant hyperglycemia again noted this morning, 16. Will discontinue evening Lantus and continue treatment with sliding scale insulin. 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 He is also C. difficile positive and continues to have diarrhea. I have initiated oral vancomycin 4 times daily. Do not work with physical therapy yesterday because of anemia. Hemoglobin 8.5 today. Encourage working with physical therapy to help with acute rehab placement. 02/01: Patient seen and evaluated. Hemoglobin is 6.5 today. Provide [address] consultation to GI. He denies abdominal pain. Reports history of chronic diarrhea over the past 2 years, uncertain if this overtly red or black. 01/31: Patient seen and evaluated bedside. Blood sugar was as low as 12 this morning. 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 We will decrease to 10 units at night. He has no abdominal pain today. Will advance diet as tolerated. Vitals/I&O Vitals/I&O: Vital Signs Date Time Temp Pulse Resp B/P (MAP) Pulse Ox O2 Delivery O2 Flow Rate FiO2 02/02/22 07:38 Room Air 02/02/22 07:35 68 16 121/78 (92) 100 02/02/22 03:37 98.3 98.3 I & O 02/01/22 02/01/22 02/02/22 15:00 23:00 07:00 Intake Total 420 ml Balance 420 ml Physical Exam General: Alert, Oriented X3, Cooperative Heart: Regular rate Lungs: Clear Abdomen: No tenderness Extremities: Other (Left BKA) Skin: Other (Superficial abrasions and ulcerations to bilateral lower extremities) Labs Labs: Laboratory Tests Test 02/01/22 11:24 02/01/22 11:25 02/01/22 13:10 02/01/22 15:28 Stool Campylobacter PCR Negative (NEGATIVE) Stool E. coli Shiga Toxins (PCR) Negative (NEGATIVE) Stool Salmonella PCR Negative (NEGATIVE) Stool Shigella PCR Negative (NEGATIVE) Glucose (Fingerstick) 95 mg/dL (70-99) 305 mg/dL (70-99) Iron Level 24 ug/dL (65-175) Total Iron Binding Capacity 219 ug/dL (250-450) Iron Saturation 11 % (15-34) Vitamin B12 Level 428 pg/mL (247-911) Hepatitis A IgM Antibody Nonreactive (Nonreactive) Hepatitis B Surface Antigen Nonreactive (Nonreactive) Hepatitis B Core IgM Antibody Nonreactive (Nonreactive) Hepatitis C IgG Antibody Nonreactive (Nonreactive) Clostridium difficile Toxin (PCR) Positive (NEGATIVE) Test 02/01/22 17:40 02/01/22 21:29 02/02/22 05:44 02/02/22 05:55 Glucose (Fingerstick) 335 mg/dL (70-99) 181 mg/dL (70-99) 16 mg/dL (70-99) White Blood Count 5.3 x10^3/uL (4.0-11.0) Red Blood Count 3.16 x10^6/uL (4.30-5.70) Hemoglobin 8.5 g/dL (13.0-17.5) Hematocrit 26.3 % (39.0-53.0) Mean Corpuscular Volume 83 fL (79-100) Mean Corpuscular Hemoglobin 27 pg (25-35) Mean Corpuscular Hemoglobin Concent 32 g/dL (31-37) Red Cell Distribution Width 15.7 % (11.5-14.5) Platelet Count 656 x10^3/uL (140-400) Test 02/02/22 05:56 02/02/22 06:05 02/02/22 08:10 Glucose (Fingerstick) 130 mg/dL (70-99) 126 mg/dL (70-99) Potassium Level 5.5 mmol/L (3.5-5.1) Glucose Level 94 mg/dL (70-99) Comment Review of Relevant I have reviewed the following items myron (where applicable) has been applied. Medications: Current Medications Medications (Trade) Dose Ordered Sig/Zenon Route PRN Reason Start Time Stop Time Status Last Admin Dose Admin Vancomycin HCl (Vancomycin Oral Solution) 125 mg [id number] PO 02/01/22 21:00 02/01/22 21:14 Justifications for Admission Other Justification AVA COLON MD February 02, 2022 08:49
[2022-02-02] MEDS: CHOLESTYRAMINE/ASPARTAME 4 GM PACKET PO SCH ×2 (09:00→20:43)
[2022-02-02] MEDS: VANCOMYCIN 125 MG/2.5 ML ORAL SOLUTION. PO SCH ×4 (09:00→20:43)
[2022-02-02] MEDS: LACTOBACILLUS RHAMNOSUS GG 1 CAPSULE. PO SCH ×2 (09:02→20:43)
[2022-02-02] MEDS: CALCIUM CARBONATE 500 MG TABLET PO SCH ×2 (09:02→21:42)
[2022-02-02] MEDS: FERROUS SULFATE 325 MG TABLET. PO SCH (09:02)
[2022-02-02] MEDS: THIAMINE 100 MG TABLET. PO SCH (09:02)
[2022-02-02] MEDS: GABAPENTIN 100 MG CAPSULE. PO SCH ×3 (09:02→20:43)
[2022-02-02] MEDS: TAMSULOSIN 0.4 MG CAP.ER.24H. PO SCH (09:02)
[2022-02-02] MEDS: MULTIVITAMIN with MINERAL TABLET. PO SCH (09:02)
[2022-02-02] MEDS: ASCORBIC ACID 500 MG TABLET PO SCH (09:03)
[2022-02-02] MEDS: NICOTINE 14MG PATCH. TD SCH (09:05)
--- NOTE | 2022-02-02 10:47 | PDOC ---
Date of Service: DATE: 02/02/22 TIME: 10:41 Subjective: Subjective: Eating without issue, has diarrhea. Objective: Vital Signs: Vital Signs Date Time Temp Pulse Resp B/P (MAP) Pulse Ox O2 Delivery O2 Flow Rate FiO2 02/02/22 10:31 18 100 Room Air 02/02/22 07:35 68 121/78 (92) 02/02/22 03:37 98.3 98.3 Labs: Laboratory Tests Test 02/01/22 11:24 02/01/22 11:25 02/01/22 13:10 02/01/22 15:28 Stool Campylobacter PCR Negative Stool E. coli Shiga Toxins (PCR) Negative Stool Salmonella PCR Negative Stool Shigella PCR Negative Glucose (Fingerstick) 95 mg/dL 305 mg/dL Iron Level 24 ug/dL Total Iron Binding Capacity 219 ug/dL Iron Saturation 11 % Vitamin B12 Level 428 pg/mL Hepatitis A IgM Antibody Nonreactive Hepatitis B Surface Antigen Nonreactive Hepatitis B Core IgM Antibody Nonreactive Hepatitis C IgG Antibody Nonreactive Clostridium difficile Toxin (PCR) Positive Test 02/01/22 17:40 02/01/22 21:29 02/02/22 05:44 02/02/22 05:55 Glucose (Fingerstick) 335 mg/dL 181 mg/dL 16 mg/dL White Blood Count 5.3 x10^3/uL Red Blood Count 3.16 x10^6/uL Hemoglobin 8.5 g/dL Hematocrit 26.3 % Mean Corpuscular Volume 83 fL Mean Corpuscular Hemoglobin 27 pg Mean Corpuscular Hemoglobin Concent 32 g/dL Red Cell Distribution Width 15.7 % Platelet Count 656 x10^3/uL Test 02/02/22 05:56 02/02/22 06:05 02/02/22 08:10 Glucose (Fingerstick) 130 mg/dL 126 mg/dL Potassium Level 5.5 mmol/L Glucose Level 94 mg/dL PE: GEN: NAD, in isolation LUNGS: CTAB HEART: RRR ABD: S/ND/NT NEURO/PSYCH: A & O 3, forgetful A/P: Uncontrolled DM, BLE wounds ACD/SOFIA (improved w/ transfusion - on iron QD), abnormal LFTs (better) C Diff H/o pancreatitis - details unclear - not now -- Continue vanco. Monitor Hgb and LFTs, consider outpt 'scopes. Justicifation of Admission Dx: Justifications for Admission: Justification of Admission Dx: Yes JOSE HOGAN February 02, 2022 10:47
[2022-02-02 15:00] VITALS: BP 158/88
--- NOTE | 2022-02-02 18:09 | NUR ---
Patient yelling from bed, "where's my coffee? into [address]. Nurse attempted to redirect patient from this behavior and explained staff would be in as soon as possible. Patient responded by shouting "Fuck you!" Nurse left room.
[2022-02-02 19:54] VITALS: BP 160/75
[2022-02-02] MEDS: CALCIUM CARBONATE 500 MG TAB.CHEW PO PRN (20:43)
[2022-02-02] MEDS: traZODone 50 MG TABLET. PO SCH (20:43)
[2022-02-02] MEDS ORDERED: INSULIN LISPRO 300 UNITS/3 ML VIAL. SQ ONE (22:15)
[2022-02-02 23:59] VITALS: BP 165/50
[2022-02-03] MEDS: LEVOTHYROXINE 75 MCG TABLET PO SCH (05:35)
[2022-02-03] MEDS: oxyCODONE/APAP 5/325 1 TAB TABLET PO PRN ×3 (05:36→22:26)
[2022-02-03] MEDS: HEPARIN for SUB-Q USE 5,000 UNIT/ML VIAL. SQ SCH ×3 (05:40→22:25)
[2022-02-03 07:00] VITALS: BP 105/66
[2022-02-03] MEDS: MUPIROCIN 2 % OINTMENT 22GM TUBE. TP SCH (09:00)
--- NOTE | 2022-02-03 09:36 | PDOC ---
Date of Service: DATE: 02/03/22 TIME: 09:33 Subjective: Subjective: Diarrhea is the same. No abd pain, good appetite. Objective: Objective: Nursing notes reviewed. Vital Signs: Vital Signs Date Time Temp Pulse Resp B/P (MAP) Pulse Ox O2 Delivery O2 Flow Rate FiO2 02/03/22 06:06 92 Room Air 02/02/22 23:59 97.9 89 18 165/50 (88) 97.9 Labs: Laboratory Tests Test 02/02/22 11:34 02/02/22 16:45 02/02/22 20:52 02/03/22 05:28 Glucose (Fingerstick) 255 mg/dL 204 mg/dL 327 mg/dL 241 mg/dL Test 02/03/22 08:02 Glucose (Fingerstick) 276 mg/dL PE: GEN: NAD, eating big breakfast LUNGS: CTAB HEART: RRR ABD: S/ND/NT NEURO/PSYCH: A & O 3 A/P: DM, wounds ACD/SOFIA, abnormal LFTs - better Chronic diarrhea, C Diff positive - diarrhea stable on vanco -- Continue vanco, stop Imodium. Justicifation of Admission Dx: Justifications for Admission: Justification of Admission Dx: Yes JOSE HOGAN February 03, 2022 09:36
[2022-02-03] MEDS: CALCIUM CARBONATE 500 MG TABLET PO SCH ×2 (09:41→22:24)
[2022-02-03] MEDS: CHOLESTYRAMINE/ASPARTAME 4 GM PACKET PO SCH ×2 (09:41→22:24)
[2022-02-03] MEDS: ASCORBIC ACID 500 MG TABLET PO SCH (09:41)
[2022-02-03] MEDS: THIAMINE 100 MG TABLET. PO SCH (09:41)
[2022-02-03] MEDS: FERROUS SULFATE 325 MG TABLET. PO SCH (09:41)
[2022-02-03] MEDS: MULTIVITAMIN with MINERAL TABLET. PO SCH (09:41)
[2022-02-03] MEDS: GABAPENTIN 100 MG CAPSULE. PO SCH ×3 (09:41→22:24)
[2022-02-03] MEDS: VANCOMYCIN 125 MG/2.5 ML ORAL SOLUTION. PO SCH ×4 (09:42→22:24)
[2022-02-03] MEDS: LACTOBACILLUS RHAMNOSUS GG 1 CAPSULE. PO SCH ×2 (09:42→22:24)
[2022-02-03] MEDS: TAMSULOSIN 0.4 MG CAP.ER.24H. PO SCH (09:42)
[2022-02-03] MEDS: NICOTINE 14MG PATCH. TD SCH (09:43)
--- NOTE | 2022-02-03 09:45 | PDOC ---
[employer] PROGRESS NOTE Date of Service DOS: DATE: 02/03/22 TIME: 09:42 Chief Complaint Chief Complaint Pancreatitis secondary to diabetes DM1 Multiple superficial wounds to bilateral lower extremities s/p left BKA Severe malnourishment History of Present Illness History of Present Illness 02/03: Diarrhea improving. Afebrile. No incidences of hypoglycemia overnight. He remains on vancomycin for C. difficile. Worked with PT/OT and recommended acute rehab. 02/02: Afebrile. Significant hyperglycemia again noted this morning, 16. Will discontinue evening Lantus and continue treatment with sliding scale insulin. 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 He is also C. difficile positive and continues to have diarrhea. I have initiated oral vancomycin 4 times daily. Do not work with physical therapy yesterday because of anemia. Hemoglobin 8.5 today. Encourage working with physical therapy to help with acute rehab placement. 02/01: Patient seen and evaluated. Hemoglobin is 6.5 today. Provide [address] consultation to GI. He denies abdominal pain. Reports history of chronic diarrhea over the past 2 years, uncertain if this overtly red or black. 01/31: Patient seen and evaluated bedside. Blood sugar was as low as 12 this morning. 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 We will decrease to 10 units at night. He has no abdominal pain today. Will advance diet as tolerated. Vitals/I&O Vitals/I&O: Vital Signs Date Time Temp Pulse Resp B/P (MAP) Pulse Ox O2 Delivery O2 Flow Rate FiO2 02/03/22 06:06 92 Room Air 02/02/22 23:59 97.9 89 18 165/50 (88) 97.9 I & O 02/02/22 02/02/22 02/03/22 15:00 23:00 07:00 Intake Total 4000 ml 2000 ml Output Total 3000 ml 1500 ml Balance 1000 ml 500 ml Physical Exam General: Alert, Oriented X3, Cooperative Heart: Regular rate Lungs: Clear Abdomen: No tenderness Extremities: Other (Left BKA) Skin: Other (Superficial abrasions and ulcerations to bilateral lower extremities) Labs Labs: Laboratory Tests Test 02/02/22 11:34 02/02/22 16:45 02/02/22 20:52 02/03/22 05:28 Glucose (Fingerstick) 255 mg/dL (70-99) 204 mg/dL (70-99) 327 mg/dL (70-99) 241 mg/dL (70-99) Test 02/03/22 08:02 Glucose (Fingerstick) 276 mg/dL (70-99) Comment Review of Relevant I have reviewed the following items myron (where applicable) has been applied. Medications: Current Medications Medications (Trade) Dose Ordered Sig/Zenon Route PRN Reason Start Time Stop Time Status Last Admin Dose Admin Insulin Human Lispro (HumaLOG) 5 units 1X ONCE SQ 02/02/22 22:15 02/02/22 22:19 DC 02/02/22 22:33 Justifications for Admission Other Justification AVA COLON MD February 03, 2022 09:45
[2022-02-03] MEDS: INSULIN LISPRO 300 UNITS/3 ML VIAL. SQ SCH ×7 (09:50→22:24)
[2022-02-03 11:00] VITALS: BP 123/76
[2022-02-03 15:00] VITALS: BP 115/69
[2022-02-03 15:49] LABS: HEMATOCRIT 24.4 % (39.0-53.0); RED BLOOD COUNT 2.93 x10^6/uL (4.30-5.70); RED CELL DISTRIBUTION WIDTH 15.7 % (11.5-14.5); WHITE BLOOD COUNT 6.8 x10^3/uL (4.0-11.0)
[2022-02-03 16:15] LABS: ALBUMIN 2.1 g/dL (3.4-5.0); ALK PHOS 302 U/L (46-116); ALT (SGPT) 215 U/L (16-63); AST (SGOT) 350 U/L (15-37); DIRECT BILIRUBIN < 0.1 mg/dL (0.0-0.2); TOTAL BILIRUBIN 0.1 mg/dL (0.2-1.0)
[2022-02-03 19:00] VITALS: BP_SYST 136; BP_SYST 144; BP_DIAS 49; BP_DIAS 59
[2022-02-03] MEDS: traZODone 50 MG TABLET. PO SCH (22:24)
[2022-02-03 22:50] VITALS: BP 142/73
[2022-02-04 03:00] VITALS: BP 129/79
[2022-02-04] MEDS: LEVOTHYROXINE 75 MCG TABLET PO SCH (05:58)
[2022-02-04] MEDS: HEPARIN for SUB-Q USE 5,000 UNIT/ML VIAL. SQ SCH ×3 (06:03→21:10)
[2022-02-04] MEDS ORDERED: DEXTROSE 50% 25 GM / 50ML DISP.SYRIN. IV ONE (06:30)
[2022-02-04] MEDS ORDERED: INSULIN REGULAR 100 UNIT/ML 3ML VIAL. IV ONE (06:45)
[2022-02-04 07:00] VITALS: BP 133/78
[2022-02-04] MEDS ORDERED: CALCIUM GLUCONATE 1,000 MG/10 ML VIAL. IVP ONE (07:00)
--- NOTE | 2022-02-04 07:05 | NUR ---
Patient report called to Maria Del Rosario ACHARYA regarding transfer for Telemetry monitoring for treatment of critical Potassium of 7.4 and monitoring of heart rhythm during medication administration. Patient being transferred to room 504 per [facility] RN, Casie GREENE, Jennifer GREENE to room 504 with all belongings at this time to get Patient on Telemetry monitoring for critical Potassium ZAC. Full report, labs, history, recent blood sugars and recent spikes and dropping of glucose given to Maria Del Rosario ACHARYA. Maria Del Rosario denies any further questions/concerns at this time. Addendum: 02/04/22 at 0802 by NAE BONDS RN Informed Maria Del Rosario of pharmacy stating that Calcium gluconate needed to be given prior to insulin per pharmacy and was noted on MAR comments. Maria Del Rosario verbalized understanding.
--- NOTE | 2022-02-04 07:54 | NUR ---
Call placed to Patient's father Lionel regarding Patient transfer to room 504 for change in monitoring for treatment. Offered Lionel phone number to nursing station and Patient's room, Lionel declined.
[2022-02-04] MEDS ORDERED: FUROSEMIDE 40 MG/4 ML VIAL. IVP ONE (08:00)
[2022-02-04] MEDS ORDERED: SODIUM POLYSTYRENE SULFON/SORB 15 GM/60 ML ORAL.SUSP. PO ONE (08:00)
--- NOTE | 2022-02-04 08:30 | PDOC ---
[employer] PROGRESS NOTE Date of Service DOS: DATE: 02/04/22 TIME: 08: Chief Complaint Chief Complaint C. Diff Hyperkalemia anemia DM1 Multiple superficial wounds to bilateral lower extremities Pancreatitis secondary to diabetes s/p left BKA Severe malnourishment History of Present Illness History of Present Illness 02/04: Patient seen and evaluated. Potassium 7.4. Will provide insulin, calcium gluconate, Lasix, and Kayexalate. EKG pending. No history of hyperkalemia with uncertain etiology. Will place consult to nephrology. States diarrhea is improving. Work with PT yesterday and recommended acute rehab. 02/03: Diarrhea improving. Afebrile. No incidences of hypoglycemia overnight. He remains on vancomycin for C. difficile. Worked with PT/OT and [place] [facility]. 02/02: Afebrile. Significant hyperglycemia again noted this morning, 16. Will discontinue evening Lantus and continue treatment with sliding scale insulin. 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 He is also C. difficile positive and continues to have diarrhea. I have initiated oral vancomycin 4 times daily. Do not work with physical therapy yesterday because of anemia. Hemoglobin 8.5 today. Encourage working with physical therapy to help with acute rehab placement. 02/01: Patient seen and evaluated. Hemoglobin is 6.5 today. Provide [address] consultation to GI. He denies abdominal pain. Reports history of chronic diarrhea over the past 2 years, uncertain if this overtly red or black. 01/31: Patient seen and evaluated bedside. Blood sugar was as low as 12 this morning. 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 We will decrease to 10 units at night. He has no abdominal pain today. Will advance diet as tolerated. Vitals/I&O Vitals/I&O: Vital Signs Date Time Temp Pulse Resp B/P (MAP) Pulse Ox O2 Delivery O2 Flow Rate FiO2 02/04/22 03:00 98.0 95 18 129/79 (96) 96 Room Air 98.0 I & O 0 02/03/22 02/03/22 02/04/22 15:00 23:00 07:00 Output Total 700 ml Balance -700 ml Physical Exam General: Alert, Oriented X3, Cooperative Heart: Regular rate Lungs: Clear Abdomen: No tenderness Extremities: Other (Left BKA) Skin: Other (Superficial abrasions and ulcerations to bilateral lower extremities) Labs Labs: Laboratory Tests Test 02/03/22 11:26 02/03/22 15:30 02/03/22 16:37 02/03/22 21:02 Glucose (Fingerstick) 183 mg/dL (70-99) 283 mg/dL (70-99) 150 mg/dL (70-99) White Blood Count 6.8 x10^3/uL (4.0-11.0) Red Blood Count 2.93 x10^6/uL (4.30-5.70) Hemoglobin 8.0 g/dL (13.0-17.5) Hematocrit 24.4 % (39.0-53.0) Mean Corpuscular Volume 83 fL (79-100) Mean Corpuscular Hemoglobin 27 pg (25-35) Mean Corpuscular Hemoglobin Concent 33 g/dL (31-37) Red Cell Distribution Width 15.7 % (11.5-14.5) Platelet Count 611 x10^3/uL (140-400) Total Bilirubin 0.1 mg/dL (0.2-1.0) Direct Bilirubin < 0.1 mg/dL (0.0-0.2) Aspartate Amino Transf (AST/SGOT) 350 U/L (15-37) Alanine Aminotransferase (ALT/SGPT) 215 U/L (16-63) Alkaline Phosphatase 302 U/L (46-116) Total Protein 6.0 g/dL (6.4-8.2) Albumin 2.1 g/dL (3.4-5.0) Test 02/04/22 03:34 02/04/22 04:40 02/04/22 07:23 Glucose (Fingerstick) 216 mg/dL (70-99) 309 mg/dL (70-99) Potassium Level 7.4 mmol/L (3.5-5.1) Comment Review of Relevant I have reviewed the following items myron (where applicable) has been applied. Justifications for Admission Other Justification AVA COLON MD February 04, 2022 08:30
[2022-02-04] MEDS: MUPIROCIN 2 % OINTMENT 22GM TUBE. TP SCH (09:00)
--- NOTE | 2022-02-04 09:23 | PDOC2 ---
CONSULT Date of Consult Date of Consult DATE: 02/04/22 TIME: 09:10 Reason for Consult Reason for Consult: Hyoerkalemia Identification/Chief Complaint Chief Complaint No complaints currently, sleeping with face covered . Linden Historian, Source Source: Chart review History of Present Illness Reason for Visit: Patient is a 41-year-old male presenting to the emergency department for evaluation of abdominal pain and hyperglycemia,Admitted on 01/30,.He has a history of pancreatitis recurrently and was admitted recently for the same. He states he has dealt with pancreatitis for the past 15 years , gallbladder has been removed, denies drinking alcohol a He denies fevers chills nausea vomi ting diarrhea constipation. He says that he uses injections for his diabetes and has been compliant but his blood sugars have been persistently above 600. Diarrhea improving. Denies any K supplements. No N/V. No f/c . No urinary complaints We are consulted for Hyperkalemia . On Reviewing his home med list he is on Lokelma - patient not sure if he is taking it. Linden Historian, Only answering yes and No, resting with face covered with sheet . Past Hospitalization was at - No records available Past Medical History Past Medical History PMH/PSH: Past Medical History: Depression, Diabetes Additional Past Medical Histor: ANOXIC BRAIN DAMAGE, ENCEPHALOPATHY, Past Surgical History: Cholecystectomy Additional Past Surgical Histo: LEFT LOWER LEG AMPUTATION Family History Family History DM Social History Social History Alcohol Use: None Drug Use: Marijuana 1 pack per day ALCOHOL: occassional Drugs: Marijuana Current Medications Current Medications Current Medications Amino Acids/ Electrolytes/ Dextrose 1,000 ml @ 75 mls/hr [id number] IV Last administered on 01/30/22at 16:53; Start 01/30/22 at 06:00; Stop 01/30/22 at 19:05; Status DC Ascorbic Acid (Vitamin C) 500 mg DAILY PO Last administered on 02/03/22at 09:41; Start 01/30/22 at 09:00 Calcium Carbonate/ Glycine (Oscal) 500 mg BID PO Last administered on 02/03/22at 22:24; Start 01/30/22 at 09:00 Ferrous Sulfate (Feosol) 325 mg DAILY PO Last administered on 02/03/22at 09:41; Start 01/30/22 at 09:00 Gabapentin (Neurontin) 100 mg TID PO Last administered on 02/03/22 22:24; Start 01/30/22 at 09:00 Insulin Human Regular (HumuLIN R VIAL) 100 unit Q6HRS SQ ; Start 01/30/22 at 12:00; Status UNV Lactobacillus Rhamnosus (Culturelle) 1 cap BID PO Last administered on 02/03/22 22:24; Start 01/30/22 at 09:00 Levothyroxine Sodium (Synthroid) 75 mcg DAILY06 PO Last administered on 02/04/22 05:58; Start 01/30/22 at 06:30 Loperamide HCl (Imodium) 2 mg PRN TID PRN PO DIARRHEA Last administered on 01/31/22 22:31; Start 01/30/22 at 09:00; Stop 02/03/22 at 09:37; Status DC Nicotine (Nicoderm Cq 14mg) 1 patch DAILY TD Last administered on 02/03/22 09:43; Start 01/30/22 at 09:00 Tamsulosin HCl (Flomax) 0.4 mg DAILY PO Last administered on 02/03/22 09:42; Start 01/30/22 at 09:00 Trazodone HCl (Desyrel) 50 mg QHS PO Last administered on 02/03/22 22:24; Start 01/30/22 at 21:00 Non-Formulary Medication (Amino Acids/ Protein Hydrolys (Pro-Stat Liquid)) 30 ml BID PO ; Start 01/30/22 at 09:00; Status UNV Cholestyramine Resin (Questran Light) 4 gm BID PO Last administered on 02/03/22 22:24; Start 01/30/22 at 09:00 Multivitamins (Thera M Plus) 1 tab DAILY PO Last administered on 02/03/22 09:41; Start 01/30/22 at 09:00 Mupirocin (Bactroban) 1 jay DAILY TP Last administered on 02/03/22 09:00; Start 01/30/22 at 09:00 Prochlorperazine Maleate (Compazine) 10 mg PRN Q12HRS PRN PO NAUSEA/VOMITING Last administered on 01/31/22 12:40; Start 01/30/22 at 06:30 Non-Formulary Medication (Sodium Zirconium Cyclosilicate (Lokelma)) 10 gm BID PO ; Start 01/30/22 at 09:00; Stop 02/01/22 at 17:35; Status DC Thiamine Mononitrate (Vitamin B-1) 100 mg DAILY PO Last administered on at 09:41; Start 01/30/22 at 09:00 Dextrose (Dextrose 50%-Water Syringe) 12.5 gm PRN Q15MIN PRN IV SEE COMMENTS Last administered on 02/02/22at 05:47; Start 01/30/22 at 06:45 Insulin Human Lispro (HumaLOG) 0-5 UNITS TIDWMEALS SQ Last administered on 01/31at 11:33; Start 01/30/22 at 08:00; Stop 02/02/22 at 22:02; Status DC Ondansetron HCl (Zofran) 4 mg PRN Q6HRS PRN IVP NAUSEA/VOMITING Last administered on 02/01/22at 09:26; Start 01/30/22 at 11:45 Calcium Carbonate/ Glycine (Tums) 500 mg PRN Q3HRS PRN PO UPSET STOMACH Last administered on 02/02/22at 20:43; Start 01/30/22 at 11:45 Info (Non-Icu Electrolyte Protocol) 1 ea PRN DAILY PRN MC SEE COMMENTS; Start 01/30/22 at 11:45 Oxycodone/ Acetaminophen (Percocet 5/325) 1 tab PRN Q4HRS PRN PO MILD PAIN, 1ST CHOICE; Start 01/30/22 at 11:45 Oxycodone/ Acetaminophen (Percocet 5/325) 2 tab PRN Q4HRS PRN PO MODERATE PAIN, SEVERE PAIN Last administered on 02/03/22at 22:26; Start 01/30/22 at 11:45 Acetaminophen (Tylenol) 650 mg PRN Q6HRS PRN PO Headaches, Temp > 101.5F; Start 01/30/22 at 11:45 Senna/Docusate Sodium (Senna Plus) 1 tab BID PO Last administered on 02/01/22at 09:19; Start 01/30/22 at 12:00; Stop 02/01/22 at 15:14; Status DC Heparin Sodium (Porcine) (Heparin Sodium) 5,000 unit Q8HRS SQ Last administered on 02/04/22at 06:03; Start 01/30/22 at 12:00 Insulin Glargine (Lantus Syringe) 14 unit QHS SQ Last administered on 01/30/22at 20:52; Start 01/30/22 at 21:00; Stop 01/31/22 at 09:55; Status DC Sodium Polystyrene Sulfonate (Kayexalate) 15 gm 1X ONCE PO Last administered on 01/30/22at 13:56; Start 01/30/22 at 13:45; Stop 01/30/22 at 13:51; Status DC Insulin Human Lispro (HumaLOG) 5 units 1X SQ ; Start 01/30/22 at 17:15; Stop 01/30/22 at 17:25; Status DC Insulin Human Lispro (HumaLOG) 5 units 1X ONCE SQ Last administered on 01/30/22at 17:30; Start 01/30/22 at 17:30; Stop 01/30/22 at 17:31; Status DC Insulin Human Lispro (HumaLOG) 10 units TIDAC SQ Last administered on 02/03/22at 18:20; Start 01/31/22 at 07:30 Insulin Glargine (Lantus Syringe) 10 unit QHS SQ Last administered on 02/01/22at 21:00; Start 01/31/22 at 21:00; Stop 02/02/22 at 08:46; Status DC Vancomycin HCl (Vancomycin Oral Solution) 125 mg [id number] PO Last administered on 02/03/22at 22:24; Start 02/01/22 at 21:00 Insulin Human Lispro (HumaLOG) 0-5 UNITS TIDACHC SQ Last administered on 02/03/22at 18:20; Start 02/03/22 at 07:30 Insulin Human Lispro (HumaLOG) 5 units 1X ONCE SQ Last administered on 02/02/22at 22:33; Start 02/02/22 at 22:15; Stop 02/02/22 at 22:19; Status DC Dextrose (Dextrose 50%-Water Syringe) 25 gm 1X ONCE IV ; Start 02/04/22 at 06:30; Stop 02/04/22 at 06:31; Status DC Insulin Human Regular (HumuLIN R VIAL) 10 unit 1X ONCE IV ; Start 02/04/22 at 06:45; Stop 02/04/22 at 06:46; Status DC Calcium Gluconate (Calcium Gluconate) 1,000 mg 1X ONCE IVP ; Start 02/04/22 at 07:00; Stop 02/04/22 at 07:01; Status DC Furosemide (Lasix) 40 mg 1X ONCE IVP ; Start 02/04/22 at 08:00; Stop 02/04/22 at 08:02; Status DC Sodium Polystyrene Sulfonate (Kayexalate) 15 gm 1X ONCE PO ; Start 02/04/22 at 08:00; Stop 02/04/22 at 08:02; Status DC Active Scripts Active Reported Ascorbic Acid 500 Mg Tablet 500 Mg PO DAILY Vitamin B-1 (Thiamine Hcl) 100 Mg Tablet 100 Mg PO DAILY Flomax (Tamsulosin Hcl) 0.4 Mg Cap.er.24h 0.4 Mg PO DAILY Lokelma (Sodium Zirconium Cyclosilicate) 10 Gm Powd.pack 10 Gm PO BID Pro-Stat Liquid (Amino Acids/Protein Hydrolys) 30 Ml Liquid.pkt 30 Ml PO BID NICODERM CQ 14mg (Nicotine) 1 Each Patch.td24 1 Patch TP DAILY Mupirocin Cream (Mupirocin) 15 Gm Cream..g. 1 Jay TP DAILY 7 Days Multiple Vitamins (Multivitamin) 1 Each Tablet 1 Tab PO DAILY 30 Days Anti-Diarrheal (Loperamide Hcl) 2 Mg Capsule 2 Mg PO TID Levothyroxine Sodium 75 Mcg Tablet 1 Tab PO DAILY Ferrous Sulfate 325 Mg Tablet 325 Mg PO DAILY Cholestyramine Packet (Cholestyramine (With Sugar)) 4 Gm Powd.pack 4 Gm PO BID Trazodone Hcl 50 Mg Tablet 1 Tab PO QHS Compazine (Prochlorperazine Maleate) 10 Mg Tablet 1 Tab PO Q12HR 30 Days Culturelle (Lactobacillus Rhamnosus Gg) 1 Each Cap.sprink 1 Each PO BID Humalog (Insulin Lispro) 100 Unit/1 Ml Vial 100 Unit SQ Q6HRS Gabapentin (Gabapentin) 100 Mg Capsule 100 Mg PO TID Calcium Carbonate 500 Mg Tablet 500 Mg PO BID Allergies Allergies: Coded Allergies: No Known Drug Allergies (Unverified , 01/30/22) Patient states that he does not have any allergies ROS Review of System As per HPI, rest of the ROS is negative Physical Exam Physical Exam GEN: No apparent distress. Alert and oriented HEENT: Normal cephalic, atraumatic, OM moist NECK: Supple, no JVD, LUNGS: Clear to auscultation , Non labored HEART: RRR, S!, S2 present. ABDOMEN: Soft, nontender. Positive bowel sounds, no organomegaly EXTREMITIES: Without clubbing, cyanosis, or edema. NEUROLOGIC: Normal speech and tone. A&O x 3, moves all extremities, no obvious focal deficits PSYCHIATRIC: Normal affect, normal mood. Stable SKIN: No rashes, good skin turgor, no jaundice No kumar, No CVA or SP tenderness Vital Signs Vital Signs Date Time Temp Pulse Resp B/P (MAP) Pulse Ox O2 Delivery O2 Flow Rate FiO2 02/04/22 07:00 97.9 73 18 133/78 (96) 96 Room Air 97.9 Assessment & Plan HyperKalemia- appears to be chronic--No previous labs to compare - per his home med list reconciled in the chart - on lokelil(Pt doesnt know) . No EKG changes Renal function normal, Has Elevate BS , Hgb trending down . Has recent Hospitalizations, No records available (he has been at [facility] since 01/30) . We dont have K binders availble at [facility]. Kayexalate given, HyperKalemia Protocol and Lasix x1 No acute etiology Identified. Recommend getting ct scan abdomen (as no imaging available fro ) . Dw Dr Fagan . Monitor K closely Pancreatitis secondary to diabetes DM1- Per primary Anemia- Hgb < 7 POA, ? Etiology- defer to Primary /GI (No recommendations) .Discussed with Dr Fagan to check CT abdomen . Plat elevated as well . No previous labs to compare / ? Chronicity Multiple superficial wounds to bilateral lower extremities s/p left BKA Severe malnourishment . Labs Labs Laboratory Tests Test 02/02/22 11:34 02/02/22 16:45 02/02/22 20:52 02/03/22 05:28 Glucose (Fingerstick) 255 mg/dL (70-99) 204 mg/dL (70-99) 327 mg/dL (70-99) 241 mg/dL (70-99) Test 02/03/22 08:02 02/03/22 11:26 02/03/22 15:30 02/03/22 16:37 Glucose (Fingerstick) 276 mg/dL (70-99) 183 mg/dL (70-99) 283 mg/dL (70-99) White Blood Count 6.8 x10^3/uL (4.0-11.0) Red Blood Count 2.93 x10^6/uL (4.30-5.70) Hemoglobin 8.0 g/dL (13.0-17.5) Hematocrit 24.4 % (39.0-53.0) Mean Corpuscular Volume 83 fL (79-100) Mean Corpuscular Hemoglobin 27 pg (25-35) Mean Corpuscular Hemoglobin Concent 33 g/dL (31-37) Red Cell Distribution Width 15.7 % (11.5-14.5) Platelet Count 611 x10^3/uL (140-400) Total Bilirubin 0.1 mg/dL (0.2-1.0) Direct Bilirubin < 0.1 mg/dL (0.0-0.2) Aspartate Amino Transf (AST/SGOT) 350 U/L (15-37) Alanine Aminotransferase (ALT/SGPT) 215 U/L (16-63) Alkaline Phosphatase 302 U/L (46-116) Total Protein 6.0 g/dL (6.4-8.2) Albumin 2.1 g/dL (3.4-5.0) Test 02/03/22 21:02 02/04/22 03:34 02/04/22 04:40 02/04/22 07:23 Glucose (Fingerstick) 150 mg/dL (70-99) 216 mg/dL (70-99) 309 mg/dL (70-99) Potassium Level 7.4 mmol/L (3.5-5.1) Laboratory Tests Test 02/03/22 11:26 02/03/22 15:30 02/03/22 16:37 02/03/22 21:02 Glucose (Fingerstick) 183 mg/dL (70-99) 283 mg/dL (70-99) 150 mg/dL (70-99) White Blood Count 6.8 x10^3/uL (4.0-11.0) Red Blood Count 2.93 x10^6/uL (4.30-5.70) Hemoglobin 8.0 g/dL (13.0-17.5) Hematocrit 24.4 % (39.0-53.0) Mean Corpuscular Volume 83 fL (79-100) Mean Corpuscular Hemoglobin 27 pg (25-35) Mean Corpuscular Hemoglobin Concent 33 g/dL (31-37) Red Cell Distribution Width 15.7 % (11.5-14.5) Platelet Count 611 x10^3/uL (140-400) Total Bilirubin 0.1 mg/dL (0.2-1.0) Direct Bilirubin < 0.1 mg/dL (0.0-0.2) Aspartate Amino Transf (AST/SGOT) 350 U/L (15-37) Alanine Aminotransferase (ALT/SGPT) 215 U/L (16-63) Alkaline Phosphatase 302 U/L (46-116) Total Protein 6.0 g/dL (6.4-8.2) Albumin 2.1 g/dL (3.4-5.0) Test 02/04/22 03:34 02/04/22 04:40 02/04/22 07:23 Glucose (Fingerstick) 216 mg/dL (70-99) 309 mg/dL (70-99) Potassium Level 7.4 mmol/L (3.5-5.1) Review All relevant outside records, renal labs, imaging studies, telemetry/EKG's were reviewed. Images Images nONE SINCE ADMISSION AT [facility] MARJORIE ALLEN MD February 04, 2022 09:23
[2022-02-04] MEDS: VANCOMYCIN 125 MG/2.5 ML ORAL SOLUTION. PO SCH ×4 (09:26→21:09)
[2022-02-04] MEDS: CHOLESTYRAMINE/ASPARTAME 4 GM PACKET PO SCH ×2 (09:26→21:09)
[2022-02-04] MEDS: THIAMINE 100 MG TABLET. PO SCH (09:27)
[2022-02-04] MEDS: NICOTINE 14MG PATCH. TD SCH (09:27)
[2022-02-04] MEDS: TAMSULOSIN 0.4 MG CAP.ER.24H. PO SCH (09:27)
[2022-02-04] MEDS: MULTIVITAMIN with MINERAL TABLET. PO SCH (09:27)
[2022-02-04] MEDS: GABAPENTIN 100 MG CAPSULE. PO SCH ×3 (09:27→21:09)
[2022-02-04] MEDS: FERROUS SULFATE 325 MG TABLET. PO SCH (09:27)
[2022-02-04] MEDS: CALCIUM CARBONATE 500 MG TABLET PO SCH ×2 (09:27→21:09)
[2022-02-04] MEDS: LACTOBACILLUS RHAMNOSUS GG 1 CAPSULE. PO SCH ×2 (09:28→21:09)
[2022-02-04] MEDS: ASCORBIC ACID 500 MG TABLET PO SCH (09:28)
[2022-02-04] MEDS: oxyCODONE/APAP 5/325 1 TAB TABLET PO PRN ×3 (09:53→21:12)
[2022-02-04] MEDS: INSULIN LISPRO 300 UNITS/3 ML VIAL. SQ SCH ×7 (10:01→21:00)
--- NOTE | 2022-02-04 10:51 | NUR ---
SS following for discharge planning. SS reviewed pt chart and discussed with pt RN. Pt is from home and is currently on room air. PT/OT recommended acute rehabilitation. SS was notified that pt is declining inpatient rehabilitation. Pt's daughter in the room. SS met with pt's daughter and discussed discharge planning. Pt's daughter verified that pt will not go to inpatient rehabilitation due to past experiences. Pt's daughter reported that pt had [facility], ; fax [phone], at home. Nephrology and GI following. SS will continue to follow for discharge planning.
[2022-02-04 11:00] VITALS: BP 102/65
--- NOTE | 2022-02-04 13:30 | RAD ---
EXAM: Abdomen and pelvis CT without intravenous contrast. HISTORY: Anemia. Diarrhea. TECHNIQUE: Computed tomographic images of the abdomen and pelvis were obtained without contrast. Mult iplanar reformatting was performed. *One or more of the following individualized dose reduction techniques were utilized for this examina tion: 1. Automated exposure control. 2. Adjustment of the mA and/or kV according to patient size. 3. Use of iterative reconstruction technique. COMPARISON: 01/29/2022. FINDINGS: Evaluation of the lower thorax demonstrates a new small left greater than right pleural eff usions and partial left greater the right lower lobe consolidation and associated air bronchograms. N o hepatic lesion is seen. The gallbladder is surgically absent. The pancreas, spleen, adrenal glands and kidneys are unremarkable. There is trace perihepatic ascites. There is a distended stomach. There is no evidence of small bowel obstruction. There is moderate stoo l throughout the colon and rectal vault. The urinary bladder is distended. The aorta is normal in yonathan iber. There are stable nonspecific retroperitoneal lymph nodes. There is mild diffuse body wall edema . There is no acute osseous finding. There are lower thoracic an upper lumbar endplate Schmorl's node s. IMPRESSION: 1. New small left greater than right pleural effusions and partial left greater than right lower lobe consolidation. Follow-up to confirm resolution. 2. Gastric distention. No obstructing lesion is seen. 3. Moderate colonic and rectal stool. Correlate for constipation. 4. Distended urinary bladder. 5. Trace perihepatic ascites. 6. Stable body wall edema. Electronically signed by: Concha Hernandes MD (02/04/2022 1:28 PM) [id number]
--- NOTE | 2022-02-04 14:15 | EKG ---
[facility] [address] [place] [address] Test Date: 2022-02-04 Test Time: 14:11:16 Pat Name: NADINE LUNDBERG Department: Room: [facility] Gender: M Business Analytics Intern: HARDIK : 1980 Requested By: AVA COLON Order Number: [id number] Reading MD: Sami Tovar MD Measurements Intervals [place] Rate: 75 P: 45 DE: 156 QRS: 26 QRSD: 76 T: 57 QT: 350 QTc: 393 Interpretive Statements SINUS RHYTHM ANTEROSEPTAL INFARCT Electronically Signed On 02-08-2022 11:25:11 CDT by Sami Tovar MD
[2022-02-04 14:45] VITALS: BP 121/76
--- NOTE | 2022-02-04 15:47 | PDOC ---
G I PROGRESS NOTE Subjective Says diarrhea slowly better. Eating well. Physical Exam Lungs clear anteriorly. RRR Abdomen soft. Review of Relevant I have reviewed the following items myron (where applicable) has been applied. Labs Laboratory Tests Test 02/02/22 16:45 02/02/22 20:52 02/03/22 05:28 02/03/22 08:02 Glucose (Fingerstick) 204 mg/dL (70-99) 327 mg/dL (70-99) 241 mg/dL (70-99) 276 mg/dL (70-99) Test 02/03/22 11:26 02/03/22 15:30 02/03/22 16:37 02/03/22 21:02 Glucose (Fingerstick) 183 mg/dL (70-99) 283 mg/dL (70-99) 150 mg/dL (70-99) White Blood Count 6.8 x10^3/uL (4.0-11.0) Red Blood Count 2.93 x10^6/uL (4.30-5.70) Hemoglobin 8.0 g/dL (13.0-17.5) Hematocrit 24.4 % (39.0-53.0) Mean Corpuscular Volume 83 fL (79-100) Mean Corpuscular Hemoglobin 27 pg (25-35) Mean Corpuscular Hemoglobin Concent 33 g/dL (31-37) Red Cell Distribution Width 15.7 % (11.5-14.5) Platelet Count 611 x10^3/uL (140-400) Total Bilirubin 0.1 mg/dL (0.2-1.0) Direct Bilirubin < 0.1 mg/dL (0.0-0.2) Aspartate Amino Transf (AST/SGOT) 350 U/L (15-37) Alanine Aminotransferase (ALT/SGPT) 215 U/L (16-63) Alkaline Phosphatase 302 U/L (46-116) Total Protein 6.0 g/dL (6.4-8.2) Albumin 2.1 g/dL (3.4-5.0) Test 02/04/22 03:34 02/04/22 04:40 02/04/22 07:23 02/04/22 11:49 Glucose (Fingerstick) 216 mg/dL (70-99) 309 mg/dL (70-99) 117 mg/dL (70-99) Potassium Level 7.4 mmol/L (3.5-5.1) Thyroid Stimulating Hormone (TSH) 7.197 uIU/mL (0.358-3.74) Laboratory Tests Test 02/03/22 16:37 02/03/22 21:02 02/04/22 03:34 02/04/22 04:40 Glucose (Fingerstick) 283 mg/dL (70-99) 150 mg/dL (70-99) 216 mg/dL (70-99) Potassium Level 7.4 mmol/L (3.5-5.1) Thyroid Stimulating Hormone (TSH) 7.197 uIU/mL (0.358-3.74) Test 02/04/22 07:23 02/04/22 11:49 Glucose (Fingerstick) 309 mg/dL (70-99) 117 mg/dL (70-99) Vitals/I & O Vital Sign - Last 24 Hours 02/03/22 02/03/22 02/03/22 02/03/22 19:00 20:30 22:26 22:50 Temp 98.2 98.5 98.2 98.5 Pulse 77 89 Resp 18 18 18 B/P (MAP) 136/49 (78) 142/73 (96) Pulse Ox 96 96 97 O2 Delivery Room Air Room Air Room Air Room Air 02/03/22 02/04/22 02/04/22 02/04/22 22:56 03:00 07:00 09:53 Temp 98.0 97.9 98.0 97.9 Pulse 95 73 Resp 18 18 18 B/P (MAP) 129/79 (96) 133/78 (96) Pulse Ox 96 96 94 O2 Delivery Room Air Room Air Room Air Room Air 02/04/22 02/04/22 02/04/22 02/04/22 10:23 11:00 14:42 14:45 Temp 98.0 98.1 98.0 98.1 Pulse 76 81 Resp 18 18 18 18 B/P (MAP) 102/65 (77) 121/76 (91) Pulse Ox 94 95 94 98 O2 Delivery Room Air Room Air Room Air Room Air Intake and Output 02/03/22 02/03/22 02/04/22 15:00 23:00 07:00 Output Total 700 ml Balance -700 ml Assessment C.diff, on vanc. Anemia, numbers c/w ACD Plan of Care Note Continue as now. Off the weekend. Coverage available if needed. Justicifation of Admission Dx: Justifications for Admission: Justification of Admission Dx: Yes NANY RUSHING MD February 04, 2022 15:47
[2022-02-04 19:00] VITALS: BP 122/71
[2022-02-04] MEDS: traZODone 50 MG TABLET. PO SCH (21:09)
[2022-02-04 23:00] VITALS: BP 125/69
[2022-02-05] MEDS: oxyCODONE/APAP 5/325 1 TAB TABLET PO PRN ×4 (01:27→20:49)
[2022-02-05 03:00] VITALS: BP 122/77
[2022-02-05 04:48] LABS: HEMATOCRIT 28.3 % (39.0-53.0); HEMOGLOBIN 7.9 g/dL (13.0-17.5)
[2022-02-05 05:03] LABS: CALCIUM 8.3 mg/dL (8.5-10.1); GFR 82.8
[2022-02-05 05:08] LABS: POTASSIUM 7.1 mmol/L (3.5-5.1)
[2022-02-05] MEDS ORDERED: DEXTROSE 50% 25 GM / 50ML DISP.SYRIN. IV ONE (05:30)
--- NOTE | 2022-02-05 05:37 | NUR ---
At 0508 lab called w/ a critical K+ of 7.1. K+ was 7.4 earlier yesterday am and he refused Kayexalate. Dr Bone called around 0520 and gave orders for 10 units of Regular insulin and 1 amp of D50.
[2022-02-05] MEDS ORDERED: INSULIN REGULAR 100 UNIT/ML 3ML VIAL. IV ONE (05:45)
[2022-02-05] MEDS: HEPARIN for SUB-Q USE 5,000 UNIT/ML VIAL. SQ SCH ×3 (05:50→20:47)
[2022-02-05] MEDS: LEVOTHYROXINE 75 MCG TABLET PO SCH (05:50)
[2022-02-05 07:00] VITALS: BP 131/79
[2022-02-05] MEDS: INSULIN LISPRO 300 UNITS/3 ML VIAL. SQ SCH ×7 (07:30→21:44)
[2022-02-05] MEDS: MUPIROCIN 2 % OINTMENT 22GM TUBE. TP SCH (09:00)
[2022-02-05] MEDS: TAMSULOSIN 0.4 MG CAP.ER.24H. PO SCH (09:29)
[2022-02-05] MEDS: THIAMINE 100 MG TABLET. PO SCH (09:29)
[2022-02-05] MEDS: FERROUS SULFATE 325 MG TABLET. PO SCH (09:29)
[2022-02-05] MEDS: MULTIVITAMIN with MINERAL TABLET. PO SCH (09:29)
[2022-02-05] MEDS: CHOLESTYRAMINE/ASPARTAME 4 GM PACKET PO SCH ×2 (09:29→20:49)
[2022-02-05] MEDS: LACTOBACILLUS RHAMNOSUS GG 1 CAPSULE. PO SCH ×2 (09:29→20:49)
[2022-02-05] MEDS: ASCORBIC ACID 500 MG TABLET PO SCH (09:29)
[2022-02-05] MEDS: GABAPENTIN 100 MG CAPSULE. PO SCH ×3 (09:29→20:49)
[2022-02-05] MEDS: CALCIUM CARBONATE 500 MG TABLET PO SCH ×2 (09:29→20:49)
[2022-02-05] MEDS: NICOTINE 14MG PATCH. TD SCH (09:30)
[2022-02-05] MEDS: VANCOMYCIN 125 MG/2.5 ML ORAL SOLUTION. PO SCH ×4 (09:43→20:49)
[2022-02-05 11:00] VITALS: BP 125/71
--- NOTE | 2022-02-05 11:22 | PDOC ---
[employer] PROGRESS NOTE Date of Service DOS: DATE: 02/05/22 TIME: 11:21 Chief Complaint Chief Complaint C. Diff Hyperkalemia anemia DM1 Multiple superficial wounds to bilateral lower extremities Pancreatitis secondary to diabetes s/p left BKA Severe malnourishment History of Present Illness History of Present Illness 02/05 Patient evaluated examined at bedside. Received another dose of calcium, insulin and dextrose overnight. Continue to trend potassium. Nephrology following. Sugars remain very brittle. Continue close monitoring. Does need rehab placement. Continue p.o. Vanco. Diarrhea improving a bit. 02/04: Patient seen and evaluated. Potassium 7.4. Will provide insulin, calcium gluconate, Lasix, and Kayexalate. EKG pending. No history of hyperkalemia with uncertain etiology. Will place consult to nephrology. States diarrhea is improving. Work with PT yesterday and recommended acute rehab. 02/03: Diarrhea improving. Afebrile. No incidences of hypoglycemia overnight. He remains on vancomycin for C. difficile. Worked with PT/OT and recommended acute rehab. 02/02: Afebrile. Significant hyperglycemia again noted this morning, 16. Will discontinue evening Lantus and continue treatment with sliding scale insulin. 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 He is also C. difficile positive and continues to have diarrhea. I have initiated oral vancomycin 4 times daily. Do not work with physical therapy yesterday because of anemia. Hemoglobin 8.5 today. Encourage working with physical therapy to help with acute rehab placement. 02/01: Patient seen and evaluated. Hemoglobin is 6.5 today. Provide [address] consultation to GI. He denies abdominal pain. Reports history of chronic diarrhea over the past 2 years, uncertain if this overtly red or black. 01/31: Patient seen and evaluated bedside. Blood sugar was as low as 12 this morning. 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 We will decrease to 10 units at night. He has no abdominal pain today. Will advance diet as tolerated. Vitals/I&O Vitals/I&O: Vital Signs Date Time Temp Pulse Resp B/P (MAP) Pulse Ox O2 Delivery O2 Flow Rate FiO2 02/05/22 09:33 20 93 Room Air 5/28/22 07:00 98.0 70 131/79 (96) 98.0 I & O 02/04/22 02/04/22 02/05/22 15:00 23:00 07:00 Intake Total 240 ml 120 ml Output Total 350 ml Balance -110 ml 120 ml Physical Exam General: Alert, Oriented X3, Cooperative Heart: Regular rate Lungs: Clear Abdomen: No tenderness Extremities: Other (Left BKA) Skin: Other (Superficial abrasions and ulcerations to bilateral lower extremities) Labs Labs: Laboratory Tests Test 02/04/22 11:49 02/04/22 16:44 02/04/22 21:00 02/05/22 04:00 Glucose (Fingerstick) 117 mg/dL (70-99) 270 mg/dL (70-99) 164 mg/dL (70-99) Hemoglobin 7.9 g/dL (13.0-17.5) Hematocrit 28.3 % (39.0-53.0) Mean Corpuscular Hemoglobin Concent 28 g/dL (31-37) Sodium Level 130 mmol/L (136-145) Potassium Level 7.1 mmol/L (3.5-5.1) Chloride Level 104 mmol/L (98-107) Carbon Dioxide Level 21 mmol/L (21-32) Anion Gap 5 (6-14) Blood Urea Nitrogen 22 mg/dL (8-26) Creatinine 1.0 mg/dL (0.7-1.3) Estimated GFR (Cockcroft-Gault) 82.8 Glucose Level 203 mg/dL (70-99) Calcium Level 8.3 mg/dL (8.5-10.1) Test 02/05/22 07:13 02/05/22 09:57 02/05/22 11:14 Glucose (Fingerstick) 126 mg/dL (70-99) 44 mg/dL (70-99) Potassium Level 6.7 mmol/L (3.5-5.1) Comment Review of Relevant I have reviewed the following items myron (where applicable) has been applied. Medications: Current Medications Medications (Trade) Dose Ordered Sig/Zenon Route PRN Reason Start Time Stop Time Status Last Admin Dose Admin Insulin Human Regular (HumuLIN R VIAL) 10 unit 1X ONCE IV 02/05/22 05:45 02/05/22 05:46 DC 02/05/22 05:49 Dextrose (Dextrose 50%-Water Syringe) 25 gm 1X ONCE IV 02/05/22 05:30 02/05/22 05:34 DC 02/05/22 05:48 Justifications for Admission Other Justification VIC NEWMAN MD February 05, 2022 11:22
[2022-02-05] MEDS: DEXTROSE 50% 25 GM / 50ML DISP.SYRIN. IV PRN ×2 (11:30→12:21)
--- NOTE | 2022-02-05 11:36 | PDOC ---
DATE OF SERVICE: DOS: DATE: 02/05/22 TIME: : SUBJECTIVE ROS Asked to follow-up for: Hyperkalemia Patient is a poor historian unable to tell me who gave him Lokelma to begin with. It is reported that he refused Kayexalate yesterday and was treated with other temporizing measures. He does have some weakness in his lower extremities. I am unable to look at the images of his EKG as attempted with his nurse CVS: no Orthopnea, no CP RESP: no SOB, no BUNDY GI: no Nausea, no Vomiting : no Dysuria, no Urgency OBJECTIVE Vital Signs Vital Signs Date Time Temp Pulse Resp B/P (MAP) Pulse Ox O2 Delivery O2 Flow Rate FiO2 02/05/22 09:33 20 93 Room Air 02/05/22 07:00 98.0 70 131/79 (96) 98.0 I & 0 Intake and Output 02/05/22 07:00 Intake Total 360 ml Output Total 350 ml Balance 10 ml Intake Oral 360 ml Output Urine Total 350 ml # Bowel Movements 2 PHYSICAL EXAM Physical Exam GEN: Awake, Oriented x 2-3, In no distress, flat affect EYES: Vision Unchanged, Conjunctiva Normal EN: No EN Drainage, Mucous Membranes moist NECK: no JVD, no JVP, Supple, no Thyromegaly CVS: S1S2, ? Murmur, No Gallop, No Rub,no Edema RESP: no Rales, no Rhonchi,no Acc. Muscle Use GI: BS + ve, NO Bruit, Non Tender, Non Distended : no CVA tenderness, no Suprapubic Tenderness DIAGNOSIS/ASSESSMENT Assessment & Plan Hyperkalemia: Was treated with temporizing measures yesterday: Remains in the critical range at this time. Patient denies having refused Kayexalate hence we will give him 60 g of Kayexalate. Work-up as ordered. Unable to order urine osmolality at this facility and hence unable to calculate TT KG. Patient is noted to have a platelet count of > 600K which may be contributing some to pseudohyperkalemia. I was unable to see his EKG to assess for changes however given his myalgia I will check a CPK as well as treat his hyperkalemia pending the same. Consider hematology evaluation in light of anemia. Unclear if patient had hypoglycemic seizures also. He is noted to be anemic with iron deficiency state: Consult hematology COMMENT/RELEVANT DATA Meds Current Medications Medications (Trade) Dose Ordered Sig/Zenon Start Time Stop Time Status Last Admin Dose Admin Acetaminophen (Tylenol) 650 mg PRN Q6HRS PRN 01/30/22 11:45 Amino Acids/ Electrolytes/ Dextrose 1,000 ml @ 75 mls/hr [id number] 01/30/22 06:00 01/30/22 19:05 DC 01/30/22 16:53 75 MLS/HR Ascorbic Acid (Vitamin C) 500 mg DAILY 01/30/22 09:00 02/05/22 09:29 500 MG Calcium Carbonate/ Glycine (Oscal) 500 mg BID 01/30/22 09:00 02/05/22 09:29 500 MG Calcium Carbonate/ Glycine (Tums) 500 mg PRN Q3HRS PRN 01/30/22 11:45 02/02/22 20:43 500 MG Calcium Gluconate (Calcium Gluconate) 1,000 mg 1X ONCE 02/04/22 07:00 02/04/22 07:01 DC 02/04/22 09:14 1,000 MG Cholestyramine Resin (Questran Light) 4 gm BID 01/30/22 09:00 02/05/22 09:29 4 GM Dextrose (Dextrose 50%-Water Syringe) 25 gm 1X ONCE 02/05/22 05:30 02/05/22 05:34 DC 02/05/22 05:48 25 GM Ferrous Sulfate (Feosol) 325 mg DAILY 01/30/22 09:00 02/05/22 09:29 325 MG Furosemide (Lasix) 40 mg 1X ONCE 02/04/22 08:00 02/04/22 08:02 DC 02/04/22 09:47 40 MG Gabapentin (Neurontin) 100 mg TID 01/30/22 09:00 02/05/22 09:29 100 MG Heparin Sodium (Porcine) (Heparin Sodium) 5,000 unit Q8HRS 01/30/22 12:00 02/05/22 05:50 5,000 UNIT Info (Non-Icu Electrolyte Protocol) 1 ea PRN DAILY PRN 01/30/22 11:45 Insulin Glargine (Lantus Syringe) 10 unit QHS 01/31/22 21:00 02/02/22 08:46 DC 02/01/22 21:00 10 UNIT Insulin Human Lispro (HumaLOG) 5 units 1X ONCE 02/02/22 22:15 02/02/22 22:19 DC 02/02/22 22:33 5 UNITS Insulin Human Regular (HumuLIN R VIAL) 10 unit 1X ONCE 02/05/22 05:45 02/05/22 05:46 DC 02/05/22 05:49 10 UNIT Lactobacillus Rhamnosus (Culturelle) 1 cap BID 01/30/22 09:00 02/05/22 09:29 1 CAP Levothyroxine Sodium (Synthroid) 75 mcg DAILY06 01/30/22 06:30 02/05/22 05:50 75 MCG Loperamide HCl (Imodium) 2 mg PRN TID PRN 01/30/22 09:00 02/03/22 09:37 DC 01/31/22 22:31 2 MG Multivitamins (Thera M Plus) 1 tab DAILY 01/30/22 09:00 02/05/22 09:29 1 TAB Mupirocin (Bactroban) 1 marie DAILY 01/30/22 09:00 02/03/22 09:00 1 MARIE Nicotine (Nicoderm Cq 14mg) 1 patch DAILY 01/30/22 09:00 02/05/22 09:30 1 PATCH Non-Formulary Medication (Amino Acids/ Protein Hydrolys (Pro-Stat Liquid)) 30 ml BID 01/30/22 09:00 UNV Non-Formulary Medication (Sodium Zirconium Cyclosilicate (Lokelma)) 10 gm BID 01/30/22 09:00 02/01/22 17:35 DC Ondansetron HCl (Zofran) 4 mg PRN Q6HRS PRN 01/30/22 11:45 02/01/22 09:26 4 MG Oxycodone/ Acetaminophen (Percocet 5/325) 2 tab PRN Q4HRS PRN 01/30/22 11:45 02/05/22 09:33 2 TAB Prochlorperazine Maleate (Compazine) 10 mg PRN Q12HRS PRN 01/30/22 06:30 01/31/22 12:40 10 MG Senna/Docusate Sodium (Senna Plus) 1 tab BID 01/30/22 12:00 02/01/22 15:14 DC 02/01/22 09:19 1 TAB Sodium Polystyrene Sulfonate (Kayexalate) 15 gm 1X ONCE 02/04/22 08:00 02/04/22 08:02 DC Tamsulosin HCl (Flomax) 0.4 mg DAILY 01/30/22 09:00 02/05/22 09:29 0.4 MG Thiamine Mononitrate (Vitamin B-1) 100 mg DAILY 01/30/22 09:00 02/05/22 09:29 100 MG Trazodone HCl (Desyrel) 50 mg QHS 01/30/22 21:00 02/04/22 21:09 50 MG Vancomycin HCl (Vancomycin Oral Solution) 125 mg [id number] 02/01/22 21:00 02/05/22 09:43 125 MG Lab Laboratory Tests Test 02/04/22 11:49 02/04/22 16:44 02/04/22 21:00 02/05/22 04:00 Glucose (Fingerstick) 117 mg/dL (70-99) 270 mg/dL (70-99) 164 mg/dL (70-99) Hemoglobin 7.9 g/dL (13.0-17.5) Hematocrit 28.3 % (39.0-53.0) Mean Corpuscular Hemoglobin Concent 28 g/dL (31-37) Sodium Level 130 mmol/L (136-145) Potassium Level 7.1 mmol/L (3.5-5.1) Chloride Level 104 mmol/L (98-107) Carbon Dioxide Level 21 mmol/L (21-32) Anion Gap 5 (6-14) Blood Urea Nitrogen 22 mg/dL (8-26) Creatinine 1.0 mg/dL (0.7-1.3) Estimated GFR (Cockcroft-Gault) 82.8 Glucose Level 203 mg/dL (70-99) Calcium Level 8.3 mg/dL (8.5-10.1) Test 02/05/22 07:13 02/05/22 09:57 02/05/22 11:14 Glucose (Fingerstick) 126 mg/dL (70-99) 44 mg/dL (70-99) Potassium Level 6.7 mmol/L (3.5-5.1) Results All relevant outside records, renal labs, imaging studies, telemetry/EKG's were reviewed. Berenicetion of Admission Dx: Justifications for Admission: Justification of Admission Dx: Yes GAGAN HAMMONDS MD February 05, 2022 11:36
[2022-02-05] MEDS ORDERED: MAGNESIUM SULFATE 2GM 50 ML IV PRN (11:45)
[2022-02-05] MEDS ORDERED: SODIUM POLYSTYRENE SULFON/SORB 15 GM/60 ML ORAL.SUSP. PO ONE (12:00)
[2022-02-05 15:00] VITALS: BP 120/78
[2022-02-05 19:55] VITALS: BP 134/75
[2022-02-05] MEDS: traZODone 50 MG TABLET. PO SCH (20:48)
[2022-02-05 23:21] VITALS: BP 137/80
[2022-02-06] MEDS: oxyCODONE/APAP 5/325 1 TAB TABLET PO PRN ×4 (03:01→21:14)
[2022-02-06 03:39] VITALS: BP 144/84
[2022-02-06 03:59] LABS: URIC ACID 3.6 mg/dL (3.5-7.2)
[2022-02-06 04:00] LABS: ALBUMIN 2.2 g/dL (3.4-5.0); CALCIUM 8.2 mg/dL (8.5-10.1); CREATININE 0.8 mg/dL (0.7-1.3); GFR 107.1; PHOSPHORUS 4.8 mg/dL (2.6-4.7)
[2022-02-06 04:30] LABS: POTASSIUM 6.2 mmol/L (3.5-5.1)
--- NOTE | 2022-02-06 05:07 | NUR ---
At 0430 lab called w/ a critical + of 6.2. Dr. Moreno called back and was notified around 444. Gave new orders for 1 amp Na+Bicarb, kayexalate, 11 units of Lispro insulin and to recheck BMP @ noon.
[2022-02-06] MEDS ORDERED: SODIUM POLYSTYRENE SULFON/SORB 15 GM/60 ML ORAL.SUSP. PO ONE (05:15)
[2022-02-06] MEDS ORDERED: SODIUM BICARB ADULT 8.4% 50 MEQ/50 ML DISP.SYRIN. IV ONE (05:15)
[2022-02-06] MEDS ORDERED: INSULIN LISPRO 300 UNITS/3 ML VIAL. SQ ONE ×2 (05:15→17:45)
[2022-02-06] MEDS: LEVOTHYROXINE 75 MCG TABLET PO SCH (05:43)
[2022-02-06] MEDS: HEPARIN for SUB-Q USE 5,000 UNIT/ML VIAL. SQ SCH ×3 (05:53→21:17)
[2022-02-06 07:00] VITALS: BP 135/74
[2022-02-06] MEDS: INSULIN LISPRO 300 UNITS/3 ML VIAL. SQ SCH ×7 (07:30→22:38)
[2022-02-06] MEDS: MUPIROCIN 2 % OINTMENT 22GM TUBE. TP SCH (09:00)
[2022-02-06] MEDS: FERROUS SULFATE 325 MG TABLET. PO SCH (09:25)
[2022-02-06] MEDS: MULTIVITAMIN with MINERAL TABLET. PO SCH (09:25)
[2022-02-06] MEDS: LACTOBACILLUS RHAMNOSUS GG 1 CAPSULE. PO SCH ×2 (09:25→21:14)
[2022-02-06] MEDS: NICOTINE 14MG PATCH. TD SCH (09:26)
[2022-02-06] MEDS: TAMSULOSIN 0.4 MG CAP.ER.24H. PO SCH (09:26)
[2022-02-06] MEDS: GABAPENTIN 100 MG CAPSULE. PO SCH ×3 (09:26→21:14)
[2022-02-06] MEDS: THIAMINE 100 MG TABLET. PO SCH (09:26)
[2022-02-06] MEDS: ASCORBIC ACID 500 MG TABLET PO SCH (09:26)
[2022-02-06] MEDS: VANCOMYCIN 125 MG/2.5 ML ORAL SOLUTION. PO SCH ×4 (09:26→21:13)
[2022-02-06] MEDS: CHOLESTYRAMINE/ASPARTAME 4 GM PACKET PO SCH ×2 (09:26→21:13)
[2022-02-06] MEDS: CALCIUM CARBONATE 500 MG TABLET PO SCH ×2 (09:26→21:14)
[2022-02-06 11:00] VITALS: BP 129/75
--- NOTE | 2022-02-06 11:25 | PDOC ---
DATE OF SERVICE: DOS: DATE: 02/06/22 TIME: 11:20 SUBJECTIVE ROS Asked to see for hyperkalemia Patient remains asymptomatic overall. Myalgias have improved somewhat CVS: no Orthopnea, no CP RESP: no SOB, no BUNDY GI: no Nausea, no Vomiting : no Dysuria, no Urgency OBJECTIVE Vital Signs Vital Signs Date Time Temp Pulse Resp B/P (MAP) Pulse Ox O2 Delivery O2 Flow Rate FiO2 02/06/22 09:40 19 94 Room Air 02/06/22 07:00 98.0 77 135/74 (94) 98.0 I & 0 Intake and Output 02/06/22 07:00 Intake Total 1440 ml Output Total 3575 ml Balance -2135 ml Intake Oral 1440 ml Output Urine Total 3575 ml # Bowel Movements 6 PHYSICAL EXAM Physical Exam GEN: Awake, Oriented x 2-3, In no distress, flat affect EYES: Vision Unchanged, Conjunctiva Normal EN: No EN Drainage, Mucous Membranes moist NECK: no JVD, no JVP, Supple, no Thyromegaly CVS: S1S2, ? Murmur, No Gallop, No Rub,no Edema RESP: no Rales, no Rhonchi,no Acc. Muscle Use GI: BS + ve, NO Bruit, Non Tender, Non Distended : no CVA tenderness, no Suprapubic Tenderness DIAGNOSIS/ASSESSMENT Assessment & Plan Hyperkalemia: Persistent. Continue to treat with temporizing measures currently non critical range at this time. Work-up pending as ordered yesterday. Unable to order urine osmolality at this facility and hence unable to calculate TT KG. Patient is noted to have a platelet count of > 600K which may be contributing some to pseudohyperkalemia. Plasma potassium was ordered but appears to have been canceled by the lab. Normal CPK LDH and uric acid hence hyperkalemia is less likely due to intravascular cellular breakdown. We will consult hematology evaluation in light of anemia and thrombocytosis. Type IV RTA is a possibility. We will continue normal saline for now to help with kaliuresis. He is noted to be anemic with iron deficiency state: Consult hematology and for thrombocytosis COMMENT/RELEVANT DATA Meds Current Medications Medications (Trade) Dose Ordered Sig/Zenon Start Time Stop Time Status Last Admin Dose Admin Acetaminophen (Tylenol) 650 mg PRN Q6HRS PRN 01/30/22 11:45 Amino Acids/ Electrolytes/ Dextrose 1,000 ml @ 75 mls/hr [id number] 01/30/22 06:00 01/30/22 19:05 DC 01/30/22 16:53 75 MLS/HR Ascorbic Acid (Vitamin C) 500 mg DAILY 01/30/22 09:00 02/06/22 09:26 500 MG Calcium Carbonate/ Glycine (Oscal) 500 mg BID 01/30/22 09:00 02/06/22 09:26 500 MG Calcium Carbonate/ Glycine (Tums) 500 mg PRN Q3HRS PRN 01/30/22 11:45 02/02/22 20:43 500 MG Calcium Gluconate (Calcium Gluconate) 1,000 mg 1X ONCE 02/04/22 07:00 02/04/22 07:01 DC 02/04/22 09:14 1,000 MG Cholestyramine Resin (Questran Light) 4 gm BID 01/30/22 09:00 02/06/22 09:26 4 GM Dextrose (Dextrose 50%-Water Syringe) 25 gm 1X ONCE 02/05/22 05:30 02/05/22 05:34 DC 02/05/22 05:48 25 GM Ferrous Sulfate (Feosol) 325 mg DAILY 01/30/22 09:00 02/06/22 09:25 325 MG Furosemide (Lasix) 40 mg 1X ONCE 02/04/22 08:00 02/04/22 08:02 DC 02/04/22 09:47 40 MG Gabapentin (Neurontin) 100 mg TID 01/30/22 09:00 02/06/22 09:26 100 MG Heparin Sodium (Porcine) (Heparin Sodium) 5,000 unit Q8HRS 01/30/22 12:00 02/06/22 05:53 5,000 UNIT Info (Non-Icu Electrolyte Protocol) 1 ea PRN DAILY PRN 01/30/22 11:45 Insulin Glargine (Lantus Syringe) 10 unit QHS 01/31/22 21:00 02/02/22 08:46 DC 02/01/22 21:00 10 UNIT Insulin Human Lispro (HumaLOG) 11 units 1X ONCE 02/06/22 05:15 02/06/22 05:16 DC 02/06/22 05:54 11 UNITS Insulin Human Regular (HumuLIN R VIAL) 10 unit 1X ONCE 02/05/22 05:45 02/05/22 05:46 DC 02/05/22 05:49 10 UNIT Lactobacillus Rhamnosus (Culturelle) 1 cap BID 01/30/22 09:00 02/06/22 09:25 1 CAP Levothyroxine Sodium (Synthroid) 75 mcg DAILY06 01/30/22 06:30 02/06/22 05:43 75 MCG Loperamide HCl (Imodium) 2 mg PRN TID PRN 01/30/22 09:00 02/03/22 09:37 DC 01/31/22 22:31 2 MG Magnesium Sulfate 50 ml @ 25 mls/hr PRN DAILY PRN 02/05/22 11:45 Multivitamins (Thera M Plus) 1 tab DAILY 01/30/22 09:00 02/06/22 09:25 1 TAB Mupirocin (Bactroban) 1 marie DAILY 01/30/22 09:00 02/03/22 09:00 1 MARIE Nicotine (Nicoderm Cq 14mg) 1 patch DAILY 01/30/22 09:00 02/06/22 09:26 1 PATCH Non-Formulary Medication (Amino Acids/ Protein Hydrolys (Pro-Stat Liquid)) 30 ml BID 01/30/22 09:00 UNV Non-Formulary Medication (Sodium Zirconium Cyclosilicate (Lokelma)) 10 gm BID 01/30/22 09:00 02/01/22 17:35 DC Ondansetron HCl (Zofran) 4 mg PRN Q6HRS PRN 01/30/22 11:45 02/01/22 09:26 4 MG Oxycodone/ Acetaminophen (Percocet 5/325) 2 tab PRN Q4HRS PRN 01/30/22 11:45 02/06/22 09:40 2 TAB Prochlorperazine Maleate (Compazine) 10 mg PRN Q12HRS PRN 01/30/22 06:30 01/31/22 12:40 10 MG Senna/Docusate Sodium (Senna Plus) 1 tab BID 01/30/22 12:00 02/01/22 15:14 DC 02/01/22 09:19 1 TAB Sodium Polystyrene Sulfonate (Kayexalate) 15 gm 1X ONCE 02/06/22 05:15 02/06/22 05:16 DC 02/06/22 05:43 15 GM Sodium Bicarbonate (Sodium Bicarb Adult 8.4% Syr) 50 meq 1X ONCE 02/06/22 05:15 02/06/22 05:16 DC 02/06/22 05:43 50 MEQ Tamsulosin HCl (Flomax) 0.4 mg DAILY 01/30/22 09:00 02/06/22 09:26 0.4 MG Thiamine Mononitrate (Vitamin B-1) 100 mg DAILY 01/30/22 09:00 02/06/22 09:26 100 MG Trazodone HCl (Desyrel) 50 mg QHS 01/30/22 21:00 02/05/22 20:48 50 MG Vancomycin HCl (Vancomycin Oral Solution) 125 mg [id number] 02/01/22 21:00 02/06/22 09:26 125 MG Lab Laboratory Tests Test 02/05/22 12:14 02/05/22 12:45 02/05/22 17:06 02/05/22 20:35 Glucose (Fingerstick) 12 mg/dL (70-99) 68 mg/dL (70-99) 196 mg/dL (70-99) 464 mg/dL (70-99) Test 02/06/22 03:00 02/06/22 08:15 02/06/22 10:54 Sodium Level 134 mmol/L (136-145) Potassium Level 6.2 mmol/L (3.5-5.1) Chloride Level 103 mmol/L (98-107) Carbon Dioxide Level 25 mmol/L (21-32) Anion Gap 6 (6-14) Blood Urea Nitrogen 17 mg/dL (8-26) Creatinine 0.8 mg/dL (0.7-1.3) Estimated GFR (Cockcroft-Gault) 107.1 Glucose Level 303 mg/dL (70-99) Uric Acid 3.6 mg/dL (3.5-7.2) Calcium Level 8.2 mg/dL (8.5-10.1) Phosphorus Level 4.8 mg/dL (2.6-4.7) Magnesium Level 1.6 mg/dL (1.8-2.4) Lactate Dehydrogenase 204 U/L (85-227) Creatine Kinase 43 U/L (39-308) Albumin 2.2 g/dL (3.4-5.0) Glucose (Fingerstick) 199 mg/dL (70-99) 94 mg/dL (70-99) Results All relevant outside records, renal labs, imaging studies, telemetry/EKG's were reviewed. Justicifation of Admission Dx: Justifications for Admission: Justification of Admission Dx: Yes GAGAN HAMMONDS MD February 06, 2022 11:25
[2022-02-06] MEDS ORDERED: MAGNESIUM SULFATE 2GM 50 ML IV PRN (11:30)
[2022-02-06] MEDS: IV NORMAL SALINE 1000ML BAG 1,000 ML IV SCH ×2 (12:26→21:18)
[2022-02-06 13:37] LABS: CALCIUM 8.2 mg/dL (8.5-10.1); CREATININE 0.9 mg/dL (0.7-1.3); GFR 93.5
[2022-02-06 15:00] VITALS: BP 128/69
[2022-02-06] MEDS: CHLORTHALIDONE 25 MG TABLET. PO SCH (15:41)
[2022-02-06 19:00] VITALS: BP 139/77
[2022-02-06] MEDS: traZODone 50 MG TABLET. PO SCH (21:14)
[2022-02-06 23:00] VITALS: BP 124/71
[2022-02-07 03:00] VITALS: BP 128/78
[2022-02-07 05:10] LABS: ALBUMIN 2.1 g/dL (3.4-5.0); CALCIUM 8.1 mg/dL (8.5-10.1); CREATININE 0.9 mg/dL (0.7-1.3); GFR 93.5; MAGNESIUM 1.7 mg/dL (1.8-2.4); PHOSPHORUS 4.8 mg/dL (2.6-4.7); POTASSIUM 5.7 mmol/L (3.5-5.1)
[2022-02-07] MEDS: LEVOTHYROXINE 75 MCG TABLET PO SCH (06:39)
[2022-02-07] MEDS: oxyCODONE/APAP 5/325 1 TAB TABLET PO PRN ×3 (06:40→21:03)
[2022-02-07] MEDS: HEPARIN for SUB-Q USE 5,000 UNIT/ML VIAL. SQ SCH ×3 (06:41→21:05)
[2022-02-07 07:00] VITALS: BP 115/75
[2022-02-07] MEDS: INSULIN LISPRO 300 UNITS/3 ML VIAL. SQ SCH ×7 (07:30→21:00)
[2022-02-07] MEDS: MUPIROCIN 2 % OINTMENT 22GM TUBE. TP SCH (09:00)
[2022-02-07] MEDS: CHOLESTYRAMINE/ASPARTAME 4 GM PACKET PO SCH ×2 (09:07→21:02)
[2022-02-07] MEDS: ASCORBIC ACID 500 MG TABLET PO SCH (09:08)
[2022-02-07] MEDS: VANCOMYCIN 125 MG/2.5 ML ORAL SOLUTION. PO SCH ×4 (09:08→21:02)
[2022-02-07] MEDS: TAMSULOSIN 0.4 MG CAP.ER.24H. PO SCH (09:08)
[2022-02-07] MEDS: CALCIUM CARBONATE 500 MG TABLET PO SCH ×2 (09:08→21:03)
[2022-02-07] MEDS: MULTIVITAMIN with MINERAL TABLET. PO SCH (09:08)
[2022-02-07] MEDS: CHLORTHALIDONE 25 MG TABLET. PO SCH (09:08)
[2022-02-07] MEDS: FERROUS SULFATE 325 MG TABLET. PO SCH (09:08)
[2022-02-07] MEDS: GABAPENTIN 100 MG CAPSULE. PO SCH ×3 (09:08→21:03)
[2022-02-07] MEDS: THIAMINE 100 MG TABLET. PO SCH (09:08)
[2022-02-07] MEDS: LACTOBACILLUS RHAMNOSUS GG 1 CAPSULE. PO SCH ×2 (09:08→21:03)
[2022-02-07] MEDS: NICOTINE 14MG PATCH. TD SCH (09:08)
[2022-02-07 11:00] VITALS: BP 167/77
--- NOTE | 2022-02-07 11:28 | PDOC ---
DATE OF SERVICE: DOS: DATE: 02/07/22 TIME: 11:25 SUBJECTIVE ROS Follow-up for hyperkalemia Patient denies any new complaints, claims he is feeling well. No more myalgias. CVS: no Orthopnea, no CP RESP: no SOB, no BUNDY GI: no Nausea, no Vomiting, chronic diarrhea : no Dysuria, no Urgency OBJECTIVE Vital Signs Vital Signs Date Time Temp Pulse Resp B/P (MAP) Pulse Ox O2 Delivery O2 Flow Rate FiO2 02/07/22 08:00 Room Air 02/07/22 07:50 18 97 02/07/22 07:00 97.7 73 115/75 (88) 97.7 I & 0 Intake and Output 02/07/22 07:00 Intake Total 1260 ml Output Total 1150 ml Balance 110 ml Intake Oral 1260 ml Urine/Stool Mix 1150 ml PHYSICAL EXAM Physical Exam GEN: Awake, Oriented x 2-3, In no distress, flat affect EYES: Vision Unchanged, Conjunctiva Normal EN: No EN Drainage, Mucous Membranes moist NECK: no JVD, no JVP, Supple, no Thyromegaly CVS: S1S2, ? Murmur, No Gallop, No Rub,no Edema RESP: no Rales, no Rhonchi,no Acc. Muscle Use GI: BS + ve, NO Bruit, Non Tender, Non Distended : no CVA tenderness, no Suprapubic Tenderness DIAGNOSIS/ASSESSMENT Assessment & Plan Hyperkalemia appears to be improving gradually. A.m. cortisol level is adequate. Await renin and aldosterone levels. May need to resume Lokel ma/Veltassa at discharge. Continue HCTZ. Await hematology evaluation Lowish magnesium: Replace if less than 1 7 Marginally elevated TSH: Defer to primary team Elevated platelets: Possible essential thrombocytosis. Await hematology evaluation COMMENT/RELEVANT DATA Meds Current Medications Medications (Trade) Dose Ordered Sig/Zenon Start Time Stop Time Status Last Admin Dose Admin Acetaminophen (Tylenol) 650 mg PRN Q6HRS PRN 01/30/22 11:45 Amino Acids/ Electrolytes/ Dextrose 1,000 ml @ 75 mls/hr [id number] 01/30/22 06:00 01/30/22 19:05 DC 01/30/22 16:53 75 MLS/HR Ascorbic Acid (Vitamin C) 500 mg DAILY 01/30/22 09:00 02/07/22 09:08 500 MG Calcium Carbonate/ Glycine (Oscal) 500 mg BID 01/30/22 09:00 02/07/22 09:08 500 MG Calcium Carbonate/ Glycine (Tums) 500 mg PRN Q3HRS PRN 01/30/22 11:45 02/02/22 20:43 500 MG Calcium Gluconate (Calcium Gluconate) 1,000 mg 1X ONCE 02/04/22 07:00 02/04/22 07:01 DC 02/04/22 09:14 1,000 MG Chlorthalidone (Thalitone) 25 mg DAILY 02/06/22 12:00 02/07/22 09:08 25 MG Cholestyramine Resin (Questran Light) 4 gm BID 01/30/22 09:00 02/07/22 09:07 4 GM Dextrose (Dextrose 50%-Water Syringe) 25 gm 1X ONCE 02/05/22 05:30 02/05/22 05:34 DC 02/05/22 05:48 25 GM Ferrous Sulfate (Feosol) 325 mg DAILY 01/30/22 09:00 02/07/22 09:08 325 MG Furosemide (Lasix) 40 mg 1X ONCE 02/04/22 08:00 02/04/22 08:02 DC 02/04/22 09:47 40 MG Gabapentin (Neurontin) 100 mg TID 01/30/22 09:00 02/07/22 09:08 100 MG Heparin Sodium (Porcine) (Heparin Sodium) 5,000 unit Q8HRS 01/30/22 12:00 02/07/22 06:41 5,000 UNIT Info (Non-Icu Electrolyte Protocol) 1 ea PRN DAILY PRN 01/30/22 11:45 Insulin Glargine (Lantus Syringe) 10 unit QHS 01/31/22 21:00 02/02/22 08:46 DC 02/01/22 21:00 10 UNIT Insulin Human Lispro (HumaLOG) 10 units 1X ONCE 02/06/22 17:45 02/06/22 17:47 DC 02/06/22 17:46 10 UNITS Insulin Human Regular (HumuLIN R VIAL) 10 unit 1X ONCE 02/05/22 05:45 02/05/22 05:46 DC 02/05/22 05:49 10 UNIT Lactobacillus Rhamnosus (Culturelle) 1 cap BID 01/30/22 09:00 02/07/22 09:08 1 CAP Levothyroxine Sodium (Synthroid) 75 mcg DAILY06 01/30/22 06:30 02/07/22 06:39 75 MCG Loperamide HCl (Imodium) 2 mg PRN TID PRN 01/30/22 09:00 02/03/22 09:37 DC 01/31/22 22:31 2 MG Magnesium Sulfate 50 ml @ 25 mls/hr PRN DAILY PRN 02/06/22 11:30 Multivitamins (Thera M Plus) 1 tab DAILY 01/30/22 09:00 02/07/22 09:08 1 TAB Mupirocin (Bactroban) 1 marie DAILY 01/30/22 09:00 02/03/22 09:00 1 MARIE Nicotine (Nicoderm Cq 14mg) 1 patch DAILY 01/30/22 09:00 02/07/22 09:08 1 PATCH Non-Formulary Medication (Amino Acids/ Protein Hydrolys (Pro-Stat Liquid)) 30 ml BID 01/30/22 09:00 UNV Non-Formulary Medication (Sodium Zirconium Cyclosilicate (Lokelma)) 10 gm BID 01/30/22 09:00 02/01/22 17:35 DC Ondansetron HCl (Zofran) 4 mg PRN Q6HRS PRN 01/30/22 11:45 02/01/22 09:26 4 MG Oxycodone/ Acetaminophen (Percocet 5/325) 2 tab PRN Q4HRS PRN 01/30/22 11:45 02/07/22 10:36 2 TAB Prochlorperazine Maleate (Compazine) 10 mg PRN Q12HRS PRN 01/30/22 06:30 01/31/22 12:40 10 MG Senna/Docusate Sodium (Senna Plus) 1 tab BID 01/30/22 12:00 02/01/22 15:14 DC 02/01/22 09:19 1 TAB Sodium Polystyrene Sulfonate (Kayexalate) 15 gm 1X ONCE 02/06/22 05:15 02/06/22 05:16 DC 02/06/22 05:43 15 GM Sodium Bicarbonate (Sodium Bicarb Adult 8.4% Syr) 50 meq 1X ONCE 02/06/22 05:15 02/06/22 05:16 DC 02/06/22 05:43 50 MEQ Sodium Chloride 1,000 ml @ 75 mls/hr [id number] 02/06/22 12:00 02/06/22 21:18 75 MLS/HR Tamsulosin HCl (Flomax) 0.4 mg DAILY 01/30/22 09:00 02/07/22 09:08 0.4 MG Thiamine Mononitrate (Vitamin B-1) 100 mg DAILY 01/30/22 09:00 02/07/22 09:08 100 MG Trazodone HCl (Desyrel) 50 mg QHS 01/30/22 21:00 02/06/22 21:14 50 MG Vancomycin HCl (Vancomycin Oral Solution) 125 mg [id number] 02/01/22 21:00 02/07/22 09:08 125 MG Lab Laboratory Tests Test 02/06/22 12:50 02/06/22 17:07 02/06/22 20:50 02/07/22 04:40 Sodium Level 132 mmol/L (136-145) 137 mmol/L (136-145) Potassium Level 6.0 mmol/L (3.5-5.1) 5.7 mmol/L (3.5-5.1) Chloride Level 101 mmol/L (98-107) 106 mmol/L (98-107) Carbon Dioxide Level 25 mmol/L (21-32) 27 mmol/L (21-32) Anion Gap 6 (6-14) 4 (6-14) Blood Urea Nitrogen 17 mg/dL (8-26) 28 mg/dL (8-26) Creatinine 0.9 mg/dL (0.7-1.3) 0.9 mg/dL (0.7-1.3) Estimated GFR (Cockcroft-Gault) 93.5 93.5 Glucose Level 172 mg/dL (70-99) 58 mg/dL (70-99) Calcium Level 8.2 mg/dL (8.5-10.1) 8.1 mg/dL (8.5-10.1) Glucose (Fingerstick) 477 mg/dL (70-99) 414 mg/dL (70-99) Hemoglobin 7.8 g/dL (13.0-17.5) Phosphorus Level 4.8 mg/dL (2.6-4.7) Magnesium Level 1.7 mg/dL (1.8-2.4) Creatine Kinase 34 U/L (39-308) Albumin 2.1 g/dL (3.4-5.0) Test 02/07/22 07:16 Glucose (Fingerstick) 86 mg/dL (70-99) Results All relevant outside records, renal labs, imaging studies, telemetry/EKG's were reviewed. Justicifation of Admission Dx: Justifications for Admission: Justification of Admission Dx: Yes GAGAN HAMMONDS MD February 07, 2022 11:28
[2022-02-07 15:00] VITALS: BP 122/71
--- NOTE | 2022-02-07 17:13 | PDOC ---
[facility] PROGRESS NOTE Date of Service DOS: Late entry 02/06 Chief Complaint Chief Complaint C. 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 Resting in bed no major complaints. Lab work improving. Nephrology recommendations reviewed. Closely monitor sugars still. Working on placement. 02/05 Patient evaluated examined at bedside. Received another dose of calcium, insulin and dextrose overnight. Continue to trend potassium. Nephrology follow ing. Sugars remain very brittle. Continue close monitoring. Does need rehab placement. Continue p.o. Vanco. Diarrhea improving a bit. 02/04: Patient seen and evaluated. Potassium 7.4. Will provide insulin, calcium gluconate, Lasix, and Kayexalate. EKG pending. No history of hyperkalemia with uncertain etiology. Will place consult to nephrology. States diarrhea is improving. Work with PT yesterday and recommended acute rehab. 02/03: Diarrhea improving. Afebrile. No incidences of hypoglycemia overnight. He remains on vancomycin for C. difficile. Worked with PT/OT and recommended acute rehab. 02/02: Afebrile. Significant hyperglycemia again noted this morning, 16. Will discontinue evening Lantus and continue treatment with sliding scale insulin. 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 He is also C. difficile positive and continues to have diarrhea. I have initiated oral vancomycin 4 times daily. Do not work with physical therapy yesterday because of anemia. Hemoglobin 8.5 today. Encourage working with physical therapy to help with acute rehab placement. 02/01: Patient seen and evaluated. Hemoglobin is 6.5 today. Provide [address] consultation to GI. He denies abdominal pain. Reports history of chronic diarrhea over the past 2 years, uncertain if this overtly red or black. 01/31: Patient seen and evaluated bedside. Blood sugar was as low as 12 this morning. 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 We will decrease to 10 units at night. He has no abdominal pain today. Will advance diet as tolerated. Vitals/I&O Vitals/I&O: Vital Signs Date Time Temp Pulse Resp B/P (MAP) Pulse Ox O2 Delivery O2 Flow Rate FiO2 02/07/22 15:00 97.5 86 17 122/71 (88) 99 Room Air 97.5 I & O 02/06/22 02/06/22 02/07/22 15:00 23:00 07:00 Intake Total 720 ml 240 ml 300 ml Output Total 750 ml 400 ml Balance -30 ml -160 ml 300 ml Physical Exam General: Alert, Oriented X3, Cooperative Heart: Regular rate Lungs: Clear Abdomen: No tenderness Extremities: Other (Left BKA) Skin: Other (Superficial abrasions and ulcerations to bilateral lower extremities) Labs Labs: Laboratory Tests Test 02/06/22 20:50 02/07/22 04:40 02/07/22 07:16 02/07/22 10:50 Glucose (Fingerstick) 414 mg/dL (70-99) 86 mg/dL (70-99) 324 mg/dL (70-99) Hemoglobin 7.8 g/dL (13.0-17.5) Sodium Level 137 mmol/L (136-145) Potassium Level 5.7 mmol/L (3.5-5.1) Chloride Level 106 mmol/L (98-107) Carbon Dioxide Level 27 mmol/L (21-32) Anion Gap 4 (6-14) Blood Urea Nitrogen 28 mg/dL (8-26) Creatinine 0.9 mg/dL (0.7-1.3) Estimated GFR (Cockcroft-Gault) 93.5 Glucose Level 58 mg/dL (70-99) Calcium Level 8.1 mg/dL (8.5-10.1) Phosphorus Level 4.8 mg/dL (2.6-4.7) Magnesium Level 1.7 mg/dL (1.8-2.4) Creatine Kinase 34 U/L (39-308) Albumin 2.1 g/dL (3.4-5.0) Test 02/07/22 17:02 Glucose (Fingerstick) 240 mg/dL (70-99) Comment Review of Relevant I have reviewed the following items myron (where applicable) has been applied. Medications: Current Medications Medications (Trade) Dose Ordered Sig/Zenon Route PRN Reason Start Time Stop Time Status Last Admin Dose Admin Insulin Human Lispro (HumaLOG) 10 units 1X ONCE SQ 02/06/22 17:45 02/06/22 17:47 DC 02/06/22 17:46 Justifications for Admission Other Justification VIC NEWMAN MD February 07, 2022 17:13
--- NOTE | 2022-02-07 17:14 | PDOC ---
[facility] PROGRESS NOTE Date of Service DOS: DATE: 02/07/22 TIME: 17:13 Chief Complaint Chief Complaint C. 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 Clinically stable no major complaints today. Electrolytes improving. Sugars still difficult to control. Will need placement which he is agreeable to. Books Salesperson recommendations reviewed. diarrhea improving. 02/06 Evaluated examined at bedside. Resting in bed no major complaints. Lab work improving. Nephrology recommendations reviewed. Closely monitor sugars still. Working on placement. 02/05 Patient evaluated examined at bedside. Received another dose of calcium, insulin and dextrose overnight. Continue to trend potassium. Nephrology fo llowing. Sugars remain very brittle. Continue close monitoring. Does need rehab placement. Continue p.o. Vanco. Diarrhea improving a bit. 02/04: Patient seen and evaluated. Potassium 7.4. Will provide insulin, calcium gluconate, Lasix, and Kayexalate. EKG pending. No history of hyperkalemia with uncertain etiology. Will place consult to nephrology. States diarrhea is imp roving. Work with PT yesterday and recommended acute rehab. 02/03: Diarrhea improving. Afebrile. No incidences of hypoglycemia overnight. He remains on vancomycin for C. difficile. Worked with PT/OT and recommended acute rehab. 02/02: Afebrile. Significant hyperglycemia again noted this morning, 16. Will discontinue evening Lantus and continue treatment with sliding scale insulin. 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 He is also C. difficile positive and continues to have diarrhea. I have initiated oral vancomycin 4 times daily. Do not work with physical therapy yesterday because of anemia. Hemoglobin 8.5 today. Encourage working with physical therapy to help with acute rehab placement. 02/01: Patient seen and evaluated. Hemoglobin is 6.5 today. Provide [address] consultation to GI. He denies abdominal pain. Reports history of chronic diarrhea over the past 2 years, uncertain if this overtly red or black. 01/31: Patient seen and evaluated bedside. Blood sugar was as low as 12 this morning. 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 We will decrease to 10 units at night. He has no abdominal pain today. Will advance diet as tolerated. Vitals/I&O Vitals/I&O: Vital Signs Date Time Temp Pulse Resp B/P (MAP) Pulse Ox O2 Delivery O2 Flow Rate FiO2 02/07/22 15:00 97.5 86 17 122/71 (88) 99 Room Air 97.5 I & O 02/06/22 02/06/22 02/07/22 15:00 23:00 07:00 Intake Total 720 ml 240 ml 300 ml Output Total 750 ml 400 ml Balance -30 ml -160 ml 300 ml Physical Exam General: Alert, Oriented X3, Cooperative Heart: Regular rate Lungs: Clear Abdomen: No tenderness Extremities: Other (Left BKA) Skin: Other (Superficial abrasions and ulcerations to bilateral lower extremities) Labs Labs: Laboratory Tests Test 02/06/22 20:50 02/07/22 04:40 02/07/22 07:16 02/07/22 10:50 Glucose (Fingerstick) 414 mg/dL (70-99) 86 mg/dL (70-99) 324 mg/dL (70-99) Hemoglobin 7.8 g/dL (13.0-17.5) Sodium Level 137 mmol/L (136-145) Potassium Level 5.7 mmol/L (3.5-5.1) Chloride Level 106 mmol/L (98-107) Carbon Dioxide Level 27 mmol/L (21-32) Anion Gap 4 (6-14) Blood Urea Nitrogen 28 mg/dL (8-26) Creatinine 0.9 mg/dL (0.7-1.3) Estimated GFR (Cockcroft-Gault) 93.5 Glucose Level 58 mg/dL (70-99) Calcium Level 8.1 mg/dL (8.5-10.1) Phosphorus Level 4.8 mg/dL (2.6-4.7) Magnesium Level 1.7 mg/dL (1.8-2.4) Creatine Kinase 34 U/L (39-308) Albumin 2.1 g/dL (3.4-5.0) Test 02/07/22 17:02 Glucose (Fingerstick) 240 mg/dL (70-99) Comment Review of Relevant I have reviewed the following items myron (where applicable) has been applied. Medications: Current Medications Medications (Trade) Dose Ordered Sig/Zenon Route PRN Reason Start Time Stop Time Status Last Admin Dose Admin Insulin Human Lispro (HumaLOG) 10 units 1X ONCE SQ 02/06/22 17:45 02/06/22 17:47 DC 02/06/22 17:46 Justifications for Admission Other Justification VIC NEWMAN MD February 07, 2022 17:14
[2022-02-07 19:00] VITALS: BP 109/58
[2022-02-07] MEDS: traZODone 50 MG TABLET. PO SCH (21:03)
[2022-02-07 23:00] VITALS: BP 136/78
[2022-02-08 03:15] VITALS: BP 130/77
[2022-02-08 05:42] LABS: ALBUMIN 2.1 g/dL (3.4-5.0); CALCIUM 8.4 mg/dL (8.5-10.1); GFR 82.8; MAGNESIUM 1.9 mg/dL (1.8-2.4); PHOSPHORUS 4.9 mg/dL (2.6-4.7)
[2022-02-08] MEDS: LEVOTHYROXINE 75 MCG TABLET PO SCH (06:15)
[2022-02-08] MEDS: HEPARIN for SUB-Q USE 5,000 UNIT/ML VIAL. SQ SCH ×3 (06:17→19:50)
[2022-02-08 07:00] VITALS: BP 167/87
--- NOTE | 2022-02-08 07:03 | NUR ---
At 0551 lab called with a critical K+ of 7.0. Notified Dr. Beavers's answering service three times and no response. The answering service called me back twice to try to connect and was unsuccessful. They were finally able to connect me with Dr. Beavers and he gave me no new orders. He stated that he will put in orders.
[2022-02-08] MEDS: CHOLESTYRAMINE/ASPARTAME 4 GM PACKET PO SCH ×2 (08:00→19:49)
[2022-02-08] MEDS: NICOTINE 14MG PATCH. TD SCH (08:00)
[2022-02-08] MEDS: LACTOBACILLUS RHAMNOSUS GG 1 CAPSULE. PO SCH ×2 (08:01→19:48)
[2022-02-08] MEDS: GABAPENTIN 100 MG CAPSULE. PO SCH ×3 (08:01→19:48)
[2022-02-08] MEDS: MUPIROCIN 2 % OINTMENT 22GM TUBE. TP SCH (08:01)
[2022-02-08] MEDS: CALCIUM CARBONATE 500 MG TABLET PO SCH ×2 (08:01→19:50)
[2022-02-08] MEDS: THIAMINE 100 MG TABLET. PO SCH (08:01)
[2022-02-08] MEDS: ASCORBIC ACID 500 MG TABLET PO SCH (08:01)
[2022-02-08] MEDS: TAMSULOSIN 0.4 MG CAP.ER.24H. PO SCH (08:01)
[2022-02-08] MEDS: VANCOMYCIN 125 MG/2.5 ML ORAL SOLUTION. PO SCH ×4 (08:01→19:48)
[2022-02-08] MEDS: MULTIVITAMIN with MINERAL TABLET. PO SCH (08:01)
[2022-02-08] MEDS: FERROUS SULFATE 325 MG TABLET. PO SCH (08:01)
[2022-02-08] MEDS: CHLORTHALIDONE 25 MG TABLET. PO SCH (08:01)
[2022-02-08] MEDS: oxyCODONE/APAP 5/325 1 TAB TABLET PO PRN ×3 (08:05→19:48)
[2022-02-08] MEDS: INSULIN LISPRO 300 UNITS/3 ML VIAL. SQ SCH ×7 (08:17→21:00)
[2022-02-08] MEDS ORDERED: SODIUM POLYSTYRENE SULFON/SORB 15 GM/60 ML ORAL.SUSP. PO ONE (08:45)
[2022-02-08] MEDS ORDERED: INSULIN REGULAR 100 UNIT/ML 3ML VIAL. IV ONE (08:45)
[2022-02-08] MEDS ORDERED: CALCIUM GLUCONATE 1,000 MG/10 ML VIAL. IVP ONE (08:45)
[2022-02-08] MEDS ORDERED: DEXTROSE 50% 25 GM / 50ML DISP.SYRIN. IV ONE (08:45)
[2022-02-08] MEDS: IV NORMAL SALINE 1000ML BAG 1,000 ML IV SCH ×2 (10:45→21:00)
[2022-02-08 11:00] VITALS: BP 150/75
--- NOTE | 2022-02-08 11:44 | PDOC ---
Renal-Progress Notes Subjective Notes Notes NO NEW COMPLAINTS History of Present Illness Hx of present illness STABLE Vitals Vitals Vital Signs Date Time Temp Pulse Resp B/P (MAP) Pulse Ox O2 Delivery O2 Flow Rate FiO2 02/08/22 08:05 Room Air 02/08/22 07:00 97.9 78 18 167/87 (113) 96 97.9 Weight Weight [ ] I.O. Intake and Output Intake and Output 02/08/22 07:00 Intake Total 1100 ml Output Total 2300 ml Balance -1200 ml Intake Oral 600 ml IV Total 500 ml Output Urine Total 700 ml Urine/Stool Mix 1600 ml # Voids 1 Labs Labs Laboratory Tests Test 02/07/22 17:02 02/07/22 20:28 02/08/22 03:50 02/08/22 07:54 Glucose (Fingerstick) 240 mg/dL (70-99) 77 mg/dL (70-99) 354 mg/dL (70-99) Red Blood Count 2.94 x10^6/uL (4.30-5.70) Absolute Reticulocyte Count 0.050 x10^6/uL (0.020-0.120) Percent Reticulocyte Count 1.7 % (0.5-2.3) Immature Reticulocyte Fraction 0.48 (0.20-0.60) Sodium Level 137 mmol/L (136-145) Potassium Level 7.0 mmol/L (3.5-5.1) Chloride Level 106 mmol/L (98-107) Carbon Dioxide Level 24 mmol/L (21-32) Anion Gap 7 (6-14) Blood Urea Nitrogen 25 mg/dL (8-26) Creatinine 1.0 mg/dL (0.7-1.3) Estimated GFR (Cockcroft-Gault) 82.8 Glucose Level 235 mg/dL (70-99) Calcium Level 8.4 mg/dL (8.5-10.1) Phosphorus Level 4.9 mg/dL (2.6-4.7) Magnesium Level 1.9 mg/dL (1.8-2.4) Iron Level 77 ug/dL (65-175) Total Iron Binding Capacity 248 ug/dL (250-450) Iron Saturation 31 % (15-34) Ferritin 69 ng/mL (26-388) Lactate Dehydrogenase 149 U/L (85-227) Creatine Kinase 37 U/L (39-308) Albumin 2.1 g/dL (3.4-5.0) Vitamin B12 Level 368 pg/mL (247-911) Test 02/08/22 11:02 Glucose (Fingerstick) 314 mg/dL (70-99) Review of Systems Constitutional: yes: alert, oriented Ears/Nose/Throat: Yes: no symptom reported Eyes: Yes: no symptom reported Cardiovascular: Yes no symptom reported Gastrointestional: Yes: epigastric pain Genitourinary: Yes: no symptom reported Musculoskeletal: Yes: no symptom reported Skin: Yes no symptom reported Psychiatric/Neurological: Yes: no symptom reported Endocrine: Yes: no symptom reported Physical Exam General Appearance: no apparent distress Skin: warm Respiratory: bilateral CTA Heart: S1S2 Abdomen: soft, bowel sounds present, diarrhea Genitourinary: bladder flat Extremities: pulses present Neurology: alert, oriented Assessment Assessment IMP HYPERKALEMIA-PROB TYPE 4 RTA C DIF CHRONIC PANCREATITIS HX TYPE I DM HX OF L BKA MALNOURISHMENT MET ACIDOSIS PLAN CONT HYDRATION START NAHCO3 LOW K DIET TEMPORIZING MEASURES FOR HIGH K DONE WILL FOLLOW UP LABS KARIE SHAHID MD February 08, 2022 11:43
--- NOTE | 2022-02-08 12:05 | PDOC ---
Date of Service: DATE: 02/08/22 TIME: 11:59 Subjective: Subjective: Nurse present - diarrhea after Kayexalate, eating without issue. Objective: Vital Signs: Vital Signs Date Time Temp Pulse Resp B/P (MAP) Pulse Ox O2 Delivery O2 Flow Rate FiO2 02/08/22 11:00 98.1 87 18 150/75 (100) 97 Room Air 98.1 Labs: Laboratory Tests Test 02/07/22 17:02 02/07/22 20:28 02/08/22 03:50 02/08/22 07:54 Glucose (Fingerstick) 240 mg/dL 77 mg/dL 354 mg/dL Red Blood Count 2.94 x10^6/uL Absolute Reticulocyte Count 0.050 x10^6/uL Percent Reticulocyte Count 1.7 % Immature Reticulocyte Fraction 0.48 Sodium Level 137 mmol/L Potassium Level 7.0 mmol/L Chloride Level 106 mmol/L Carbon Dioxide Level 24 mmol/L Anion Gap 7 Blood Urea Nitrogen 25 mg/dL Creatinine 1.0 mg/dL Estimated GFR (Cockcroft-Gault) 82.8 Glucose Level 235 mg/dL Calcium Level 8.4 mg/dL Phosphorus Level 4.9 mg/dL Magnesium Level 1.9 mg/dL Iron Level 77 ug/dL Total Iron Binding Capacity 248 ug/dL Iron Saturation 31 % Ferritin 69 ng/mL Lactate Dehydrogenase 149 U/L Creatine Kinase 37 U/L Albumin 2.1 g/dL Vitamin B12 Level 368 pg/mL Test 02/08/22 11:02 Glucose (Fingerstick) 314 mg/dL PE: GEN: NAD LUNGS: CTAB HEART: RRR ABD: S/ND/NT NEURO/PSYCH: A & O 3 A/P: C Diff - on vanco ACD - stable Hyperkalemia, DM, wounds -- Continue vanco. Justicifation of Admission Dx: Justifications for Admission: Justification of Admission Dx: Yes JOSE HOGAN February 08, 2022 12:05
[2022-02-08] MEDS ORDERED: SODIUM BICARBONATE VIAL 150 MEQ in IV DEXTROSE 5% 1,000 ML IV SCH (13:00)
[2022-02-08] MEDS: SODIUM BICARBONATE 650 MG TABLET. PO SCH ×2 (13:21→19:47)
[2022-02-08 15:00] VITALS: BP 146/80
[2022-02-08 19:00] VITALS: BP 149/74
[2022-02-08] MEDS: CALCIUM CARBONATE 500 MG TAB.CHEW PO PRN (19:46)
[2022-02-08] MEDS: traZODone 50 MG TABLET. PO SCH (19:47)
[2022-02-08] MEDS ORDERED: INSULIN GLARGINE SYRINGE. SQ SCH (21:00)
--- NOTE | 2022-02-09 08:05 | PDOC ---
[facility] [facility] PROGRESS NOTE Date of Service DOS: DATE: 02/09/22 TIME: 08:05 Chief Complaint Chief Complaint C. 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 Still some diarrhea today but much better than initial. Otherwise no major complaints. Sugars remain brittle. Working on placement. Discussed with bedside RN. Transcripter recommendations reviewed. 02/07 Evaluate examined at bedside. Clinically stable no major complaints today. Electrolytes improving. Sugars still difficult to control. Will need placement which he is agreeable to. Transcripter recommendations reviewed. diarrhea improving. 02/06 Evaluated examined at bedside. Resting in bed no major complaints. Lab work improving. Nephrology recommendations reviewed. Closely monitor sugars still. Working on placement. 02/05 Patient evaluated examined at bedside. Received another dose of calcium, insulin and dextrose overnight. Continue to trend potassium. Nephrology following. Sugars remain very brittle. Continue close monitoring. Does need rehab placement. Continue p.o. Vanco. Diarrhea improving a bit. 02/04: Patient seen and evaluated. Potassium 7.4. Will provide insulin, calcium gluconate, Lasix, and Kayexalate. EKG pending. No history of hyperkalemia with uncertain etiology. Will place consult to nephrology. States diarrhea is improving. Work with PT yesterday and recommended acute rehab. 02/03: Diarrhea improving. Afebrile. No incidences of hypoglycemia overnight. He remains on vancomycin for C. difficile. Worked with PT/OT and recommended acute rehab. 02/02: Afebrile. Significant hyperglycemia again noted this morning, 16. Will discontinue evening Lantus and continue treatment with sliding scale insulin. P ramos reports a history of brittle diabetes. He is also C. difficile positive and continues to have diarrhea. I have initiated oral vancomycin 4 times daily. Do not work with physical therapy yesterday because of anemia. Hemoglobin 8.5 today. Encourage working with physical therapy to help with acute rehab placement. 02/01: Patient seen and evaluated. Hemoglobin is 6.5 today. Provide [address] consultation to GI. He denies abdominal pain. Reports history of chronic diarrhea over the past 2 years, uncertain if this overtly red or black. 5/23: Patient seen and evaluated bedside. Blood sugar was as low as 12 this morning. 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 We will decrease to 10 units at night. He has no abdominal pain today. Will advance diet as tolerated. Vitals/I&O Vitals/I&O: Vital Signs Date Time Temp Pulse Resp B/P (MAP) Pulse Ox O2 Delivery O2 Flow Rate FiO2 02/08/22 20:18 20 Room Air 02/08/22 19:00 97.9 80 149/74 (99) 98 97.9 I & O 02/08/22 02/08/22 02/09/22 15:00 23:00 07:00 Intake Total 700 ml Output Total 1700 ml 800 ml Balance -1700 ml -100 ml Physical Exam General: Alert, Oriented X3, Cooperative Heart: Regular rate Lungs: Clear Abdomen: No tenderness Extremities: Other (Left BKA) Skin: Other (Superficial abrasions and ulcerations to bilateral lower extremities) Labs Labs: Laboratory Tests Test 02/08/22 11:02 02/08/22 11:40 02/08/22 15:15 02/08/22 16:52 Glucose (Fingerstick) 314 mg/dL (70-99) 179 mg/dL (70-99) Potassium Level 6.4 mmol/L (3.5-5.1) 6.2 mmol/L (3.5-5.1) Test 02/08/22 20:51 Glucose (Fingerstick) 187 mg/dL (70-99) Comment Review of Relevant I have reviewed the following items myron (where applicable) has been applied. Medications: Current Medications Medications (Trade) Dose Ordered Sig/Zenon Route PRN Reason Start Time Stop Time Status Last Admin Dose Admin Calcium Gluconate (Calcium Gluconate) 1,000 mg 1X ONCE IVP 02/08/22 08:45 02/08/22 08:46 DC 02/08/22 10:05 Dextrose (Dextrose 50%-Water Syringe) 25 gm 1X ONCE IV 02/08/22 08:45 02/08/22 08:46 DC 02/08/22 10:05 Insulin Human Regular (HumuLIN R VIAL) 10 unit 1X ONCE IV 02/08/22 08:45 02/08/22 08:46 DC 02/08/22 10:07 Sodium Polystyrene Sulfonate (Kayexalate) 30 gm 1X ONCE PO 02/08/22 08:45 02/08/22 08:46 DC 02/08/22 10:06 Insulin Glargine (Lantus Syringe) 10 unit QHS SQ 02/08/22 21:00 02/09/22 01:55 DC 02/08/22 21:56 Sodium Chloride 1,000 ml @ 100 mls/hr Q10H IV 02/08/22 10:45 02/09/22 01:55 DC 02/08/22 10:45 Sodium Bicarbonate (Sodium Bicarbonate) 650 mg TID PO 02/08/22 14:00 02/09/22 01:55 DC 02/08/22 19:47 Sodium Bicarbonate 150 meq/Dextrose 1,150 ml @ 125 mls/hr Q9H12M IV 02/08/22 13:00 02/09/22 01:55 DC 02/08/22 13:21 Justifications for Admission Other Justification VIC NEWMAN MD Feb 09, 2022 08:05
== END 2022-02-09 | disposition home or self-care (01) | DRG 371 ==
LOC: 4 NORTH 03:14 → 5 NORTH 02-04 07:15
PROVIDERS: ADMIT Internal Medicine; ATTEND Internal Medicine
PROC: 30233N1 Transfusion of Nonautologous Red Blood Cells into Peripheral Vein, Percutaneous Approach (ICD-10-PCS; principal; 2022-02-01)
DX: A04.72 Enterocolitis due to Clostridium difficile, not specified as recurrent (principal); K85.90 Acute pancreatitis without necrosis or infection, unspecified; E43 Unspecified severe protein-calorie malnutrition; E87.2 Acidosis; G93.1 Anoxic brain damage, not elsewhere classified; Z68.1 Body mass index [BMI] 19.9 or less, adult; K86.1 Other chronic pancreatitis; E87.1 Hypo-osmolality and hyponatremia; L98.499 Non-pressure chronic ulcer of skin of other sites with unspecified severity; Z89.512 Acquired absence of left leg below knee; D64.9 Anemia, unspecified; E03.9 Hypothyroidism, unspecified; E10.65 Type 1 diabetes mellitus with hyperglycemia; E87.5 Hyperkalemia; E87.70 Fluid overload, unspecified; F17.210 Nicotine dependence, cigarettes, uncomplicated; F32.A Depression, unspecified; R62.7 Adult failure to thrive; Z79.4 Long term (current) use of insulin; Z83.3 Family history of diabetes mellitus; Z87.19 Personal history of other diseases of the digestive system; Z90.49 Acquired absence of other specified parts of digestive tract
CPT/HCPCS: 36415; 36430; 74176; 80048; 80053; 80069; 80076; 82088; 82525; 82533; 82550; 82607; 82668; 82728; 82947; 82962; 83010; 83036; 83540; 83550; 83615; 83735; 84132; 84133; 84244; 84443; 84550; 85014; 85018; 85025; 85027; 85045; 86705; 86709; 86803; 86850; 86900; 86901; 86920; 87340; 87493; 87505; 93005; J0610; J1644; J1815; J1940; J2405; J3490; J7030; J7060; P9016; 97110-GO; 97110-GP; 97535-GO; G0378; Q0164